=== PATIENT | female | born 1940 | race Caucasian/White ===

== ENCOUNTER → 2016-03-02 | Outpatient (CLI) | payer MEDICARE, BC ==
[~2016-03-02] MED LIST: BYSTOLIC10 MG PO; TAPAZOLE5 MG PO; VALSARTAN AND H1 TA4 PO; WARFARIN SOD5 MG PO; ZOLPIDEM10 MG PO
== END ==
LOC: LAB 11:31
DX: I49.9 Cardiac arrhythmia, unspecified (principal); G45.1 Carotid artery syndrome (hemispheric)

== ENCOUNTER → 2016-03-09 | Outpatient (CLI) | payer MEDICARE, BC | LOC: LAB 11:05 | DX: E05.00 Thyrotoxicosis with diffuse goiter without thyrotoxic crisis or storm (principal); I10 Essential (primary) hypertension; G45.1 Carotid artery syndrome (hemispheric); R53.81 Other malaise; R25.2 Cramp and spasm ==

== ENCOUNTER → 2016-03-23 | Outpatient (CLI) | payer MEDICARE, BC | LOC: LAB 10:59 | DX: Z51.81 Encounter for therapeutic drug level monitoring (principal); Z79.01 Long term (current) use of anticoagulants; G45.1 Carotid artery syndrome (hemispheric); I49.9 Cardiac arrhythmia, unspecified ==

== ENCOUNTER → 2016-03-30 | Outpatient (CLI) | payer MEDICARE, BC | LOC: LAB 11:00 | DX: I49.9 Cardiac arrhythmia, unspecified (principal); G45.1 Carotid artery syndrome (hemispheric) ==

== ENCOUNTER → 2016-04-13 | Outpatient (CLI) | payer MEDICARE, BC | LOC: LAB 10:34 | DX: I49.9 Cardiac arrhythmia, unspecified (principal) ==

== ENCOUNTER → 2016-04-27 | Outpatient (CLI) | payer MEDICARE, BC | LOC: LAB 10:36 | DX: Z51.81 Encounter for therapeutic drug level monitoring (principal); Z79.01 Long term (current) use of anticoagulants; I49.9 Cardiac arrhythmia, unspecified; G45.1 Carotid artery syndrome (hemispheric) ==

== ENCOUNTER → 2016-05-18 | Outpatient (CLI) | payer MEDICARE, BC | LOC: LAB 10:29 | DX: E04.1 Nontoxic single thyroid nodule (principal); E05.90 Thyrotoxicosis, unspecified without thyrotoxic crisis or storm ==

== ENCOUNTER → 2016-05-27 | Outpatient (CLI) | payer MEDICARE, BC | LOC: LAB 13:00 | DX: Z51.81 Encounter for therapeutic drug level monitoring (principal); Z79.01 Long term (current) use of anticoagulants; G45.1 Carotid artery syndrome (hemispheric) ==

== ENCOUNTER → 2016-06-25 | Outpatient (CLI) | payer MEDICARE, BC ==
[2013-05-20 18:36] VITALS: BP 139/82
== END ==
LOC: LAB 11:59
DX: Z51.81 Encounter for therapeutic drug level monitoring (principal); Z79.01 Long term (current) use of anticoagulants; G45.1 Carotid artery syndrome (hemispheric); I49.9 Cardiac arrhythmia, unspecified

== ENCOUNTER → 2016-07-29 | Outpatient (CLI) | payer MEDICARE, BC ==
[2013-05-20 18:36] VITALS: BP 139/82
== END ==
LOC: LAB 10:26
DX: Z51.81 Encounter for therapeutic drug level monitoring (principal); Z79.01 Long term (current) use of anticoagulants; I49.9 Cardiac arrhythmia, unspecified

== ENCOUNTER → 2016-08-03 | Outpatient (CLI) | payer MEDICARE, BC ==
[2013-05-20 18:36] VITALS: BP 139/82
== END ==
LOC: LAB 15:05
DX: Z51.81 Encounter for therapeutic drug level monitoring (principal); Z79.01 Long term (current) use of anticoagulants; I49.9 Cardiac arrhythmia, unspecified; G45.1 Carotid artery syndrome (hemispheric)

== ENCOUNTER → 2016-08-26 | Outpatient (CLI) | payer MEDICARE, BC ==
[2013-05-20 18:36] VITALS: BP 139/82
== END ==
LOC: LAB 10:36
DX: Z51.81 Encounter for therapeutic drug level monitoring (principal); Z79.01 Long term (current) use of anticoagulants; I49.9 Cardiac arrhythmia, unspecified; G45.1 Carotid artery syndrome (hemispheric)

== ENCOUNTER → 2016-09-24 | Outpatient (CLI) | payer MEDICARE, BC ==
[2013-05-20 18:36] VITALS: BP 139/82
== END ==
LOC: LAB 11:38
DX: I49.9 Cardiac arrhythmia, unspecified (principal)

== ENCOUNTER → 2016-10-08 | Outpatient (CLI) | payer MEDICARE, BC ==
[2013-05-20 18:36] VITALS: BP 139/82
== END ==
LOC: LAB 13:29
DX: I49.9 Cardiac arrhythmia, unspecified (principal)

== ENCOUNTER → 2016-11-05 | Outpatient (CLI) | payer MEDICARE, BC ==
[2013-05-20 18:36] VITALS: BP 139/82
== END ==
LOC: LAB 13:29
DX: I49.9 Cardiac arrhythmia, unspecified (principal)

== ENCOUNTER → 2016-11-19 | Outpatient (CLI) | payer MEDICARE, BC ==
[2013-05-20 18:36] VITALS: BP 139/82
== END ==
LOC: LAB 11:14
DX: E05.20 Thyrotoxicosis with toxic multinodular goiter without thyrotoxic crisis or storm (principal); I10 Essential (primary) hypertension; R13.10 Dysphagia, unspecified

== ENCOUNTER → 2016-12-02 | Outpatient (CLI) | payer MEDICARE, BC ==
[2013-05-20 18:36] VITALS: BP 139/82
== END ==
LOC: LAB 10:46
DX: I49.9 Cardiac arrhythmia, unspecified (principal); G45.1 Carotid artery syndrome (hemispheric)

== ENCOUNTER → 2016-12-09 | Outpatient (CLI) | payer MEDICARE, BC ==
[2013-05-20 18:36] VITALS: BP 139/82
[~2016-12-09] MED LIST changes: +DIOVAN HCT PO; +LASIX20 M1 PO
== END ==
LOC: MAMMO 11:11
DX: Z12.31 Encounter for screening mammogram for malignant neoplasm of breast (principal)
CPT/HCPCS: G0202

== ENCOUNTER 2016-12-10 11:05 | Emergency (ER) | payer MEDICARE, BC ==
[~2016-12-10] VITALS: Ht 165.1 cm; Wt 104.5 kg
[~2016-12-10 11:05] MED LIST changes: -DIOVAN HCT PO; -LASIX20 M1 PO
[2016-12-10] MEDS ORDERED: DIOVAN HCT PO (11:27)
[2016-12-10 14:29] VITALS: BP 163/87
[2016-12-11] MEDS ORDERED: LASIX20 M1 PO (19:03)
== END 2016-12-10 14:34 | disposition home or self-care (01) ==
LOC: ED 11:05
DX: R07.9 Chest pain, unspecified (principal); R00.1 Bradycardia, unspecified; Z79.01 Long term (current) use of anticoagulants; I10 Essential (primary) hypertension; E78.5 Hyperlipidemia, unspecified; I65.29 Occlusion and stenosis of unspecified carotid artery; E05.00 Thyrotoxicosis with diffuse goiter without thyrotoxic crisis or storm; M79.7 Fibromyalgia; G47.33 Obstructive sleep apnea (adult) (pediatric); K29.70 Gastritis, unspecified, without bleeding; G25.81 Restless legs syndrome; M81.0 Age-related osteoporosis without current pathological fracture; Z87.891 Personal history of nicotine dependence

== ENCOUNTER 2016-12-11 16:45 | Emergency (ER) | payer MEDICARE, BC ==
[~2016-12-11] VITALS: Ht 165.1 cm; Wt 104.5 kg
[~2016-12-11 16:45] MED LIST changes: +DIOVAN HCT PO
[2016-12-11] MEDS ORDERED: LASIX20 M1 PO (19:03)
[2016-12-11 19:33] VITALS: BP 157/94
== END 2016-12-11 19:33 | disposition home or self-care (01) ==
LOC: ED 16:45
DX: I11.0 Hypertensive heart disease with heart failure (principal); I50.9 Heart failure, unspecified; Z79.01 Long term (current) use of anticoagulants; E78.5 Hyperlipidemia, unspecified; E05.00 Thyrotoxicosis with diffuse goiter without thyrotoxic crisis or storm; G47.33 Obstructive sleep apnea (adult) (pediatric); M79.7 Fibromyalgia; G25.81 Restless legs syndrome; Z87.891 Personal history of nicotine dependence; I65.29 Occlusion and stenosis of unspecified carotid artery
CPT/HCPCS: J1940

== ENCOUNTER → 2016-12-14 | Outpatient (CLI) | payer MEDICARE, BC ==
[2016-12-11 19:33] VITALS: BP 157/94
[~2016-12-14] MED LIST changes: +LASIX20 M1 PO
== END ==
LOC: RAD 10:00 → VAS 18:13
DX: R06.02 Shortness of breath (principal); I50.9 Heart failure, unspecified

== ENCOUNTER → 2016-12-21 | Outpatient (CLI) | payer MEDICARE, BC ==
[2016-12-11 19:33] VITALS: BP 157/94
[2016-12-21 11:33] LABS: PROTHROMBIN TIME 22.5 SECONDS (9.0-12.0)
== END ==
LOC: LAB 10:37
PROVIDERS: Nurse Practitioner Family
DX: G45.1 Carotid artery syndrome (hemispheric) (principal); I49.9 Cardiac arrhythmia, unspecified

== ENCOUNTER → 2016-12-31 | Outpatient (CLI) | payer MEDICARE, BC ==
[2016-12-11 19:33] VITALS: BP 157/94
[2016-12-31 10:38] LABS: PROTHROMBIN TIME 25.7 SECONDS (9.0-12.0)
== END ==
LOC: RAD 09:40 → LAB 09:40 → RAD 09:45
PROVIDERS: Nurse Practitioner Family
DX: I49.9 Cardiac arrhythmia, unspecified (principal); G45.1 Carotid artery syndrome (hemispheric); R91.1 Solitary pulmonary nodule; E04.9 Nontoxic goiter, unspecified; Z95.0 Presence of cardiac pacemaker; N28.9 Disorder of kidney and ureter, unspecified

== ENCOUNTER → 2017-01-06 | Outpatient (CLI) | payer MEDICARE, BC ==
[2016-12-11 19:33] VITALS: BP 157/94
== END ==
LOC: RAD 09:47
DX: N28.9 Disorder of kidney and ureter, unspecified (principal)

== ENCOUNTER → 2017-02-03 | Outpatient (CLI) | payer MEDICARE, BC | LOC: LAB 10:54 | PROVIDERS: Nurse Practitioner Family | DX: I49.9 Cardiac arrhythmia, unspecified (principal); G45.1 Carotid artery syndrome (hemispheric) ==

== ENCOUNTER → 2017-02-17 | Outpatient (CLI) | payer MEDICARE, BC ==
[2017-02-17 13:03] LABS: PROTHROMBIN TIME 22.8 SECONDS (9.0-12.0)
== END ==
LOC: LAB 11:58
PROVIDERS: Nurse Practitioner Family
DX: I49.9 Cardiac arrhythmia, unspecified (principal); Z88.0 Allergy status to penicillin; Z88.2 Allergy status to sulfonamides; Z88.8 Allergy status to other drugs, medicaments and biological substances; Z91.041 Radiographic dye allergy status

== ENCOUNTER → 2017-03-08 | Outpatient (CLI) | payer MEDICARE, BC ==
[2017-03-08 12:18] LABS: PROTHROMBIN TIME 20.6 SECONDS (9.0-12.0)
== END ==
LOC: LAB 11:50
PROVIDERS: Nurse Practitioner Family
DX: I49.9 Cardiac arrhythmia, unspecified (principal); G45.1 Carotid artery syndrome (hemispheric)

== ENCOUNTER → 2017-04-14 | Outpatient (CLI) | payer MEDICARE, BC ==
[2017-04-14 12:45] LABS: PROTHROMBIN TIME 25.6 SECONDS (9.0-12.0)
[2017-04-14 13:09] LABS: BUN/CREATININE RATIO 12.8 (6.0-26.0); CALCIUM 9.2 mg/dL (8.4-10.2); POTASSIUM 4.5 mmol/L (3.6-5.0)
== END ==
LOC: LAB 12:10
PROVIDERS: Internal Medicine Clinical Cardiac Electrophysiology
DX: I44.1 Atrioventricular block, second degree (principal); I48.0 Paroxysmal atrial fibrillation; Z95.0 Presence of cardiac pacemaker; I10 Essential (primary) hypertension; I82.409 Acute embolism and thrombosis of unspecified deep veins of unspecified lower extremity

== ENCOUNTER → 2017-05-13 | Outpatient (CLI) | payer MEDICARE, BC ==
[2017-05-13 11:44] LABS: PROTHROMBIN TIME 24.9 SECONDS (9.0-12.0)
== END ==
LOC: LAB 10:49
PROVIDERS: Nurse Practitioner Family
DX: I82.409 Acute embolism and thrombosis of unspecified deep veins of unspecified lower extremity (principal); Z88.0 Allergy status to penicillin; Z88.2 Allergy status to sulfonamides; Z88.1 Allergy status to other antibiotic agents; Z91.041 Radiographic dye allergy status

== ENCOUNTER → 2017-05-26 | Outpatient (CLI) | payer MEDICARE, BC ==
[2017-05-26 14:49] LABS: EOS # 0.3 (0.04-0.40); EOS % 2.8 % (1.0-5.0); HEMATOCRIT 45.7 % (37.0-47.0); HEMOGLOBIN 14.9 g/dL (12.5-16.0); LYMPH# 2.9 (1.50-4.00); MEAN CELL VOLUME 91 fl (78-100); MEAN CORPUSCULAR HEMOGLOBIN 30 pg (27-31); MEAN CORPUSCULAR HGB CONC 33 g/dL (33-37); MEAN PLATELET VOLUME 9.6 fl (7.4-10.4); MONO # 0.8 (0.20-0.80); NEU # 5.2 (1.40-6.50); PLATELET COUNT 180 K/mm3 (130-400); RED BLOOD COUNT 5.05 M/mm3 (4.10-5.30); RED CELL DISTRIBUTION WIDTH 13.2 % (11.5-14.5); WHITE BLOOD COUNT 9.2 K/mm3 (4.8-10.8)
[2017-05-26 15:08] LABS: DIRECT BILIRUBIN 0.2 mg/dL (0.0-0.4); TOTAL BILIRUBIN 0.4 mg/dL (0.2-1.3); TOTAL PROTEIN 7.7 g/dL (6.3-8.2)
== END ==
LOC: LAB 14:16
DX: E05.00 Thyrotoxicosis with diffuse goiter without thyrotoxic crisis or storm (principal); I10 Essential (primary) hypertension; R13.10 Dysphagia, unspecified; E04.1 Nontoxic single thyroid nodule

== ENCOUNTER → 2017-06-09 | Outpatient (CLI) | payer MEDICARE, BC ==
[2017-06-09 14:08] LABS: PROTHROMBIN TIME 18.7 SECONDS (9.0-12.0)
== END ==
LOC: LAB 13:24
PROVIDERS: Nurse Practitioner Family
DX: I82.409 Acute embolism and thrombosis of unspecified deep veins of unspecified lower extremity (principal)

== ENCOUNTER → 2017-06-21 | Outpatient (CLI) | payer MEDICARE, BC ==
[2017-06-21 12:03] LABS: PROTHROMBIN TIME 24.3 SECONDS (9.0-12.0)
== END ==
LOC: LAB 11:24
PROVIDERS: Nurse Practitioner Family
DX: I82.409 Acute embolism and thrombosis of unspecified deep veins of unspecified lower extremity (principal); Z88.2 Allergy status to sulfonamides; Z88.1 Allergy status to other antibiotic agents; Z91.041 Radiographic dye allergy status

== ENCOUNTER → 2017-07-15 | Outpatient (CLI) | payer MEDICARE, BC ==
[2017-07-15 14:12] LABS: PROTHROMBIN TIME 25.9 SECONDS (9.0-12.0)
== END ==
LOC: LAB 13:32
PROVIDERS: Nurse Practitioner Family
DX: I82.409 Acute embolism and thrombosis of unspecified deep veins of unspecified lower extremity (principal)

== ENCOUNTER → 2017-07-29 | Outpatient (CLI) | payer MEDICARE, BC ==
[2017-07-29 11:48] LABS: PROTHROMBIN TIME 21.7 SECONDS (9.0-12.0)
== END ==
LOC: LAB 11:15
PROVIDERS: Nurse Practitioner Family
DX: I82.409 Acute embolism and thrombosis of unspecified deep veins of unspecified lower extremity (principal)

== ENCOUNTER → 2017-08-19 | Outpatient (CLI) | payer MEDICARE, BC ==
[2017-08-19 11:59] LABS: PROTHROMBIN TIME 28.1 SECONDS (9.0-12.0)
== END ==
LOC: LAB 10:58
PROVIDERS: Nurse Practitioner Family
DX: I82.409 Acute embolism and thrombosis of unspecified deep veins of unspecified lower extremity (principal)

== ENCOUNTER → 2017-09-15 | Outpatient (CLI) | payer MEDICARE, BC ==
[2017-09-15 12:00] LABS: PROTHROMBIN TIME 29.1 SECONDS (9.0-12.0)
== END ==
LOC: LAB 10:51
PROVIDERS: Nurse Practitioner Family
DX: I82.409 Acute embolism and thrombosis of unspecified deep veins of unspecified lower extremity (principal)

== ENCOUNTER 2017-09-29 12:11 | Emergency (ER) | payer MEDICARE, BC ==
[~2017-09-29] VITALS: Ht 165.1 cm; Wt 104.5 kg
[~2017-09-29 12:11] MED LIST changes: -COZAAR25 M1 PO; -MACROBID 100 M100 MG PO
[2017-09-29] MEDS ORDERED: COZAAR25 M1 PO (12:27)
[2017-09-29 12:40] LABS: PARTIAL THROMBOPLASTIN TIME 33.4 SECONDS (21.0-32.0); PROTHROMBIN TIME 22.7 SECONDS (9.0-12.0)
[2017-09-29 12:50] LABS: TROPONIN-I < 0.03 ng/mL (0.00-0.06)
[2017-09-29] MEDS ORDERED: MACROBID 100 M100 MG PO (16:14)
[2017-09-29 16:29] VITALS: BP 156/81
== END 2017-09-29 17:07 | disposition home or self-care (01) ==
LOC: ED 12:11
PROVIDERS: Nurse Practitioner
DX: N39.0 Urinary tract infection, site not specified (principal); R07.89 Other chest pain; I10 Essential (primary) hypertension; K59.00 Constipation, unspecified; R60.0 Localized edema; E78.5 Hyperlipidemia, unspecified; Z86.718 Personal history of other venous thrombosis and embolism; Z85.41 Personal history of malignant neoplasm of cervix uteri; Z95.0 Presence of cardiac pacemaker; Z79.01 Long term (current) use of anticoagulants; Z79.899 Other long term (current) drug therapy; Z88.0 Allergy status to penicillin; Z88.2 Allergy status to sulfonamides; Z87.891 Personal history of nicotine dependence
CPT/HCPCS: J1940

== ENCOUNTER → 2017-09-29 | Outpatient (CLI) | payer MEDICARE, BC ==
[~2017-09-29] MED LIST changes: +COZAAR25 M1 PO; +MACROBID 100 M100 MG PO
[2017-09-29 11:39] LABS: EOS # 0.1 (0.04-0.40); EOS % 1.7 % (1.0-5.0); HEMATOCRIT 44.9 % (37.0-47.0); HEMOGLOBIN 14.6 g/dL (12.5-16.0); LYMPH# 1.9 (1.50-4.00); MEAN CELL VOLUME 91 fl (78-100); MEAN CORPUSCULAR HEMOGLOBIN 30 pg (27-31); MEAN CORPUSCULAR HGB CONC 33 g/dL (33-37); MEAN PLATELET VOLUME 9.8 fl (7.4-10.4); MONO # 0.6 (0.20-0.80); NEU # 5.5 (1.40-6.50); PLATELET COUNT 183 K/mm3 (130-400); RED BLOOD COUNT 4.92 M/mm3 (4.10-5.30); RED CELL DISTRIBUTION WIDTH 13.2 % (11.5-14.5); WHITE BLOOD COUNT 8.2 K/mm3 (4.8-10.8)
[2017-09-29 11:46] LABS: ALBUMIN 4.2 g/dL (3.5-5.0); BUN/CREATININE RATIO 14.5 (6.0-26.0); CALCIUM 9.4 mg/dL (8.4-10.2); POTASSIUM 4.2 mmol/L (3.6-5.0); TOTAL BILIRUBIN 0.4 mg/dL (0.2-1.3); TOTAL PROTEIN 8.1 g/dL (6.3-8.2)
[2017-09-29 11:50] LABS: URINE APPEARANCE HAZY; URINE BILIRUBIN NEGATIVE (NEGATIVE); URINE BLOOD 50 ery/uL (NEGATIVE); URINE COLOR YELLOW; URINE GLUCOSE NEGATIVE (NEGATIVE); URINE KETONE NEGATIVE (NEGATIVE); URINE LEUKOCYTE ESTERASE 1+ (NEGATIVE); URINE MUCUS PRESENT (NOT PRESENT); URINE NITRATE NEGATIVE (NEGATIVE); URINE PROTEIN(semi-quant) TRACE mg/dL (NEGATIVE); URINE UROBILINOGEN NORMAL (NORMAL)
== END ==
LOC: RAD 11:14
PROVIDERS: Nurse Practitioner Family
DX: R10.84 Generalized abdominal pain (principal); F45.8 Other somatoform disorders; R07.89 Other chest pain; R60.9 Edema, unspecified; R39.15 Urgency of urination

== ENCOUNTER → 2017-10-12 | Outpatient (CLI) | payer MEDICARE, BC ==
[2017-09-29 16:29] VITALS: BP 156/81
[~2017-10-12] MED LIST changes: +COZAAR25 M1 PO; +MACROBID 100 M100 MG PO
[2017-10-12 14:36] LABS: PROTHROMBIN TIME 31.1 SECONDS (9.0-12.0)
== END ==
LOC: LAB 13:52
PROVIDERS: Nurse Practitioner Family
DX: I82.409 Acute embolism and thrombosis of unspecified deep veins of unspecified lower extremity (principal)

== ENCOUNTER 2017-10-15 10:49 | Emergency (ER) | payer MEDICARE, BC ==
[~2017-10-15] VITALS: Wt 103.5 kg
[2017-10-15] MEDS ORDERED: LOSARTAN POTASS1 TA1 PO (11:04)
[2017-10-15] MEDS ORDERED: COUMADIN 22.5 MG/TAB PO (11:05)
[2017-10-15 11:47] LABS: EOS # 0.3 (0.04-0.40); EOS % 2.6 % (1.0-5.0); HEMATOCRIT 41.6 % (37.0-47.0); HEMOGLOBIN 13.8 g/dL (12.5-16.0); LYMPH# 1.5 (1.50-4.00); MEAN CELL VOLUME 91 fl (78-100); MEAN CORPUSCULAR HEMOGLOBIN 30 pg (27-31); MEAN CORPUSCULAR HGB CONC 33 g/dL (33-37); MEAN PLATELET VOLUME 9.4 fl (7.4-10.4); NEU # 7.5 (1.40-6.50); PLATELET COUNT 163 K/mm3 (130-400); RED BLOOD COUNT 4.58 M/mm3 (4.10-5.30); RED CELL DISTRIBUTION WIDTH 12.9 % (11.5-14.5); WHITE BLOOD COUNT 10.3 K/mm3 (4.8-10.8)
[2017-10-15 12:05] LABS: ALBUMIN 3.8 g/dL (3.5-5.0); BUN/CREATININE RATIO 16.5 (6.0-26.0); POTASSIUM 3.5 mmol/L (3.6-5.0); TOTAL BILIRUBIN 0.8 mg/dL (0.2-1.3); TOTAL PROTEIN 7.4 g/dL (6.3-8.2)
[2017-10-15 12:13] LABS: TROPONIN-I < 0.03 ng/mL (0.00-0.06)
[2017-10-15 12:28] LABS: PROTHROMBIN TIME 32.1 SECONDS (9.0-12.0)
[2017-10-15] MEDS ORDERED: RT ALBUTEROL CC18 GM IH (13:09)
[2017-10-15] MEDS ORDERED: VIBRAMYCIN HYC100 MG PO (13:09)
[2017-10-15] MEDS ORDERED: PREDNISONE20 MG PO (13:09)
[2017-10-15 13:19] VITALS: BP 102/63
== END 2017-10-15 13:25 | disposition home or self-care (01) ==
LOC: ED 10:49
PROVIDERS: Physician Assistant
DX: J44.0 Chronic obstructive pulmonary disease with (acute) lower respiratory infection (principal); J20.9 Acute bronchitis, unspecified; Z87.891 Personal history of nicotine dependence; I50.9 Heart failure, unspecified; I25.10 Atherosclerotic heart disease of native coronary artery without angina pectoris; Z86.73 Personal history of transient ischemic attack (TIA), and cerebral infarction without residual deficits; Z86.718 Personal history of other venous thrombosis and embolism; Z79.899 Other long term (current) drug therapy; Z79.01 Long term (current) use of anticoagulants
CPT/HCPCS: J7512

== ENCOUNTER → 2017-10-20 | Outpatient (CLI) | payer MEDICARE, BC ==
[2017-10-15 13:19] VITALS: BP 102/63
[~2017-10-20] MED LIST changes: +COUMADIN 22.5 MG/TAB PO; +LOSARTAN POTASS1 TA1 PO; +PREDNISONE20 MG PO; +RT ALBUTEROL CC18 GM IH; +VIBRAMYCIN HYC100 MG PO
[2017-10-20 16:19] LABS: POTASSIUM 3.4 mmol/L (3.6-5.0); TOTAL BILIRUBIN 0.5 mg/dL (0.2-1.3); TOTAL PROTEIN 7.5 g/dL (6.3-8.2)
[2017-10-20 16:22] LABS: EOS # 0.3 (0.04-0.40); EOS % 2.3 % (1.0-5.0); HEMATOCRIT 43.3 % (37.0-47.0); HEMOGLOBIN 14.7 g/dL (12.5-16.0); MEAN CELL VOLUME 88 fl (78-100); MEAN CORPUSCULAR HEMOGLOBIN 30 pg (27-31); MEAN CORPUSCULAR HGB CONC 34 g/dL (33-37); MEAN PLATELET VOLUME 9.6 fl (7.4-10.4); MONO # 1.4 (0.20-0.80); NEU # 7.8 (1.40-6.50); PLATELET COUNT 232 K/mm3 (130-400); RED CELL DISTRIBUTION WIDTH 12.7 % (11.5-14.5); WHITE BLOOD COUNT 14.3 K/mm3 (4.8-10.8)
[2017-10-20 16:24] LABS: LYMPH# 4.7 (1.50-4.00)
[2017-10-20 17:18] LABS: PROTHROMBIN TIME 47.8 SECONDS (9.0-12.0)
== END ==
LOC: LAB 15:28
PROVIDERS: Family Medicine
DX: D68.61 Antiphospholipid syndrome (principal); J40 Bronchitis, not specified as acute or chronic; I10 Essential (primary) hypertension; Z79.01 Long term (current) use of anticoagulants

== ENCOUNTER → 2017-10-22 | Outpatient (CLI) | payer MEDICARE, BC ==
[2017-10-15 13:19] VITALS: BP 102/63
[2017-10-22 10:47] LABS: PROTHROMBIN TIME 23.1 SECONDS (9.0-12.0)
== END ==
LOC: LAB 10:01
PROVIDERS: Family Medicine
DX: I82.409 Acute embolism and thrombosis of unspecified deep veins of unspecified lower extremity (principal)

== ENCOUNTER → 2017-10-29 | Outpatient (CLI) | payer MEDICARE, BC ==
[2017-10-15 13:19] VITALS: BP 102/63
[2017-10-29 10:29] LABS: PROTHROMBIN TIME 34.7 SECONDS (9.0-12.0)
== END ==
LOC: LAB 09:53
PROVIDERS: Family Medicine
DX: I82.409 Acute embolism and thrombosis of unspecified deep veins of unspecified lower extremity (principal)

== ENCOUNTER → 2017-11-12 | Outpatient (CLI) | payer MEDICARE, BC ==
[2017-10-15 13:19] VITALS: BP 102/63
[2017-11-12 14:22] LABS: PROTHROMBIN TIME 44.4 SECONDS (9.0-12.0)
== END ==
LOC: LAB 10:42
PROVIDERS: Family Medicine
DX: I82.409 Acute embolism and thrombosis of unspecified deep veins of unspecified lower extremity (principal)

== ENCOUNTER → 2017-11-23 | Outpatient (CLI) | payer MEDICARE, BC ==
[2017-11-23 11:06] LABS: PROTHROMBIN TIME 19.2 SECONDS (9.0-12.0)
== END ==
LOC: LAB 10:06
PROVIDERS: Family Medicine
DX: I82.409 Acute embolism and thrombosis of unspecified deep veins of unspecified lower extremity (principal)

== ENCOUNTER → 2017-11-25 | Outpatient (CLI) | payer MEDICARE, BC ==
[2017-11-25 12:51] LABS: DIRECT BILIRUBIN 0.4 mg/dL (0.0-0.4); TOTAL BILIRUBIN 0.7 mg/dL (0.2-1.3); TOTAL PROTEIN 7.4 g/dL (6.3-8.2)
[2017-11-25 13:23] LABS: EOS # 0.2 (0.04-0.40); HEMATOCRIT 42.2 % (37.0-47.0); HEMOGLOBIN 13.9 g/dL (12.5-16.0); LYMPH# 2.3 (1.50-4.00); MEAN CELL VOLUME 91 fl (78-100); MEAN CORPUSCULAR HEMOGLOBIN 30 pg (27-31); MEAN CORPUSCULAR HGB CONC 33 g/dL (33-37); MEAN PLATELET VOLUME 9.7 fl (7.4-10.4); MONO # 0.9 (0.20-0.80); NEU # 6.1 (1.40-6.50); PLATELET COUNT 213 K/mm3 (130-400); RED BLOOD COUNT 4.64 M/mm3 (4.10-5.30); WHITE BLOOD COUNT 9.5 K/mm3 (4.8-10.8)
== END ==
LOC: LAB 12:09
PROVIDERS: Internal Medicine Endocrinology, Diabetes & Metabolism
DX: E05.00 Thyrotoxicosis with diffuse goiter without thyrotoxic crisis or storm (principal); I10 Essential (primary) hypertension; R13.10 Dysphagia, unspecified; E04.1 Nontoxic single thyroid nodule

== ENCOUNTER → 2017-11-30 | Outpatient (CLI) | payer MEDICARE, BC ==
[2017-11-30 13:41] LABS: PROTHROMBIN TIME 30.2 SECONDS (9.0-12.0)
== END ==
LOC: LAB 13:18
PROVIDERS: Family Medicine
DX: I82.409 Acute embolism and thrombosis of unspecified deep veins of unspecified lower extremity (principal)

== ENCOUNTER → 2017-12-14 | Outpatient (CLI) | payer MEDICARE, BC ==
[2017-12-14 11:22] LABS: PROTHROMBIN TIME 26.5 SECONDS (9.0-12.0)
== END ==
LOC: LAB 10:51
PROVIDERS: Family Medicine
DX: I82.409 Acute embolism and thrombosis of unspecified deep veins of unspecified lower extremity (principal)

== ENCOUNTER → 2017-12-28 | Outpatient (CLI) | payer MEDICARE, BC | LOC: MAMMO 13:36 | DX: Z12.31 Encounter for screening mammogram for malignant neoplasm of breast (principal); Z98.890 Other specified postprocedural states; Z95.0 Presence of cardiac pacemaker ==

== ENCOUNTER → 2018-01-12 | Outpatient (CLI) | payer MEDICARE, BC ==
[2018-01-12 11:53] LABS: PROTHROMBIN TIME 35.1 SECONDS (9.0-12.0)
== END ==
LOC: LAB 10:47
PROVIDERS: Family Medicine
DX: I82.409 Acute embolism and thrombosis of unspecified deep veins of unspecified lower extremity (principal)

== ENCOUNTER → 2018-01-26 | Outpatient (CLI) | payer MEDICARE, BC ==
[2018-01-26 11:00] LABS: PROTHROMBIN TIME 24.5 SECONDS (9.0-12.0)
== END ==
LOC: LAB 10:21
PROVIDERS: Family Medicine
DX: I82.409 Acute embolism and thrombosis of unspecified deep veins of unspecified lower extremity (principal)

== ENCOUNTER → 2018-02-08 | Outpatient (CLI) | payer MEDICARE, BC ==
[2018-02-08 14:57] LABS: PROTHROMBIN TIME 22.1 SECONDS (9.0-12.0)
== END ==
LOC: LAB 13:54
PROVIDERS: Family Medicine
DX: I82.409 Acute embolism and thrombosis of unspecified deep veins of unspecified lower extremity (principal)

== ENCOUNTER → 2018-02-16 | Outpatient (CLI) | payer MEDICARE, BC ==
[2018-02-16 14:27] LABS: PROTHROMBIN TIME 16.9 SECONDS (9.0-12.0)
== END ==
LOC: LAB 13:54
PROVIDERS: Family Medicine
DX: I82.409 Acute embolism and thrombosis of unspecified deep veins of unspecified lower extremity (principal)

== ENCOUNTER → 2018-03-02 | Outpatient (CLI) | payer MEDICARE, BC ==
[2018-03-02 11:50] LABS: PROTHROMBIN TIME 24.1 SECONDS (9.0-12.0)
== END ==
LOC: LAB 10:59
PROVIDERS: Family Medicine
DX: I82.409 Acute embolism and thrombosis of unspecified deep veins of unspecified lower extremity (principal)

== ENCOUNTER → 2018-03-16 | Outpatient (CLI) | payer MEDICARE, BC ==
[2018-03-16 13:06] LABS: PROTHROMBIN TIME 30.3 SECONDS (9.0-12.0)
== END ==
LOC: LAB 11:10
PROVIDERS: Family Medicine
DX: I82.409 Acute embolism and thrombosis of unspecified deep veins of unspecified lower extremity (principal)

== ENCOUNTER → 2018-04-06 | Outpatient (CLI) | payer MEDICARE, BC | LOC: LAB 14:01 | PROVIDERS: Family Medicine | DX: I82.409 Acute embolism and thrombosis of unspecified deep veins of unspecified lower extremity (principal) ==

== ENCOUNTER → 2018-05-09 | Outpatient (CLI) | payer MEDICARE, BC ==
[2018-05-09 14:24] LABS: PROTHROMBIN TIME 26.1 SECONDS (9.0-12.0)
== END ==
LOC: LAB 13:39
PROVIDERS: Family Medicine
DX: I82.409 Acute embolism and thrombosis of unspecified deep veins of unspecified lower extremity (principal)

== ENCOUNTER → 2018-06-06 | Outpatient (CLI) | payer MEDICARE, BC ==
[2018-06-06 15:17] LABS: EOS # 0.2 (0.04-0.40); EOS % 2.6 % (1.0-5.0); HEMATOCRIT 41.9 % (37.0-47.0); HEMOGLOBIN 13.8 g/dL (12.5-16.0); LYMPH# 2.4 (1.50-4.00); MEAN CELL VOLUME 90 fl (78-100); MEAN CORPUSCULAR HEMOGLOBIN 30 pg (27-31); MEAN CORPUSCULAR HGB CONC 33 g/dL (33-37); MEAN PLATELET VOLUME 9.2 fl (7.4-10.4); MONO # 0.8 (0.20-0.80); NEU # 5.6 (1.40-6.50); PLATELET COUNT 189 K/mm3 (130-400); RED BLOOD COUNT 4.68 M/mm3 (4.10-5.30); RED CELL DISTRIBUTION WIDTH 12.9 % (11.5-14.5); WHITE BLOOD COUNT 9.1 K/mm3 (4.8-10.8)
[2018-06-06 16:40] LABS: ALBUMIN 3.9 g/dL (3.5-5.0); DIRECT BILIRUBIN 0.2 mg/dL (0.0-0.4); TOTAL BILIRUBIN 0.5 mg/dL (0.2-1.3); TOTAL PROTEIN 7.2 g/dL (6.3-8.2)
== END ==
LOC: LAB 14:54
PROVIDERS: Internal Medicine Endocrinology, Diabetes & Metabolism
DX: E03.9 Hypothyroidism, unspecified (principal); E04.1 Nontoxic single thyroid nodule; E05.00 Thyrotoxicosis with diffuse goiter without thyrotoxic crisis or storm

== ENCOUNTER → 2018-06-08 | Outpatient (CLI) | payer MEDICARE, BC ==
[2018-06-08 13:27] LABS: PROTHROMBIN TIME 23.9 SECONDS (9.0-12.0)
== END ==
LOC: LAB 12:18
PROVIDERS: Family Medicine
DX: I82.409 Acute embolism and thrombosis of unspecified deep veins of unspecified lower extremity (principal)

== ENCOUNTER → 2018-07-04 | Outpatient (CLI) | payer MEDICARE, BC ==
[2018-07-04 16:18] LABS: EOS # 0.3 (0.04-0.40); EOS % 3.1 % (1.0-5.0); HEMATOCRIT 43.1 % (37.0-47.0); LYMPH# 2.4 (1.50-4.00); MEAN CELL VOLUME 91 fl (78-100); MEAN CORPUSCULAR HEMOGLOBIN 29 pg (27-31); MEAN CORPUSCULAR HGB CONC 33 g/dL (33-37); MEAN PLATELET VOLUME 9.3 fl (7.4-10.4); MONO # 0.6 (0.20-0.80); NEU # 5.1 (1.40-6.50); PLATELET COUNT 202 K/mm3 (130-400); RED BLOOD COUNT 4.76 M/mm3 (4.10-5.30); WHITE BLOOD COUNT 8.4 K/mm3 (4.8-10.8)
[2018-07-04 16:23] LABS: ALBUMIN 4.3 g/dL (3.5-5.0); CALCIUM 9.4 mg/dL (8.4-10.2); POTASSIUM 4.2 mmol/L (3.6-5.0); TOTAL BILIRUBIN 0.4 mg/dL (0.2-1.3); TOTAL PROTEIN 7.8 g/dL (6.3-8.2)
[2018-07-04 16:56] LABS: PROTHROMBIN TIME 25.5 SECONDS (9.0-12.0)
== END ==
LOC: LAB 15:35
PROVIDERS: Family Medicine
DX: I82.409 Acute embolism and thrombosis of unspecified deep veins of unspecified lower extremity (principal); I10 Essential (primary) hypertension; E05.00 Thyrotoxicosis with diffuse goiter without thyrotoxic crisis or storm; E55.9 Vitamin D deficiency, unspecified; E53.9 Vitamin B deficiency, unspecified

== ENCOUNTER → 2018-07-27 | Outpatient (CLI) | payer MEDICARE, BC ==
[2018-07-27 13:57] LABS: PROTHROMBIN TIME 32.5 SECONDS (9.0-12.0)
== END ==
LOC: LAB 13:15
PROVIDERS: Family Medicine
DX: I82.409 Acute embolism and thrombosis of unspecified deep veins of unspecified lower extremity (principal); I10 Essential (primary) hypertension; Z95.0 Presence of cardiac pacemaker

== ENCOUNTER → 2018-08-10 | Outpatient (CLI) | payer MEDICARE, BC ==
[2018-08-10 14:05] LABS: PROTHROMBIN TIME 26.4 SECONDS (9.0-12.0)
== END ==
LOC: LAB 13:35
PROVIDERS: Family Medicine
DX: I10 Essential (primary) hypertension (principal); I82.409 Acute embolism and thrombosis of unspecified deep veins of unspecified lower extremity; Z95.0 Presence of cardiac pacemaker

== ENCOUNTER → 2018-09-21 | Outpatient (CLI) | payer MEDICARE, BC ==
[2018-09-21 14:21] LABS: PROTHROMBIN TIME 26.1 SECONDS (9.0-12.0)
== END ==
LOC: LAB 13:52
PROVIDERS: Family Medicine
DX: I82.409 Acute embolism and thrombosis of unspecified deep veins of unspecified lower extremity (principal)

== ENCOUNTER → 2018-10-19 | Outpatient (CLI) | payer MEDICARE, BC ==
[2018-10-19 11:08] LABS: PROTHROMBIN TIME 26.1 SECONDS (9.0-12.0)
== END ==
LOC: LAB 10:04
PROVIDERS: Family Medicine
DX: I82.409 Acute embolism and thrombosis of unspecified deep veins of unspecified lower extremity (principal)

== ENCOUNTER → 2018-11-16 | Outpatient (CLI) | payer MEDICARE, BC ==
[2018-11-16 10:48] LABS: PROTHROMBIN TIME 26.6 SECONDS (9.0-12.0)
== END ==
LOC: LAB 10:08
PROVIDERS: Family Medicine
DX: I82.409 Acute embolism and thrombosis of unspecified deep veins of unspecified lower extremity (principal)

== ENCOUNTER → 2018-12-15 | Outpatient (CLI) | payer MEDICARE, BC ==
[2018-12-15 10:41] LABS: PROTHROMBIN TIME 33.4 SECONDS (9.0-12.0)
== END ==
LOC: LAB 10:09
PROVIDERS: Family Medicine
DX: I82.409 Acute embolism and thrombosis of unspecified deep veins of unspecified lower extremity (principal)

== ENCOUNTER → 2018-12-28 | Outpatient (CLI) | payer MEDICARE, BC ==
[2018-12-28 15:03] LABS: PROTHROMBIN TIME 22.6 SECONDS (9.0-12.0)
== END ==
LOC: LAB 14:30
PROVIDERS: Family Medicine
DX: I82.409 Acute embolism and thrombosis of unspecified deep veins of unspecified lower extremity (principal)

== ENCOUNTER → 2019-01-18 | Outpatient (CLI) | payer MEDICARE, BC ==
[2019-01-18 11:35] LABS: PROTHROMBIN TIME 44.6 SECONDS (9.0-12.0)
== END ==
LOC: LAB 10:47
PROVIDERS: Family Medicine
DX: I82.409 Acute embolism and thrombosis of unspecified deep veins of unspecified lower extremity (principal)

== ENCOUNTER → 2019-01-25 | Outpatient (CLI) | payer MEDICARE, BC ==
[2019-01-25 12:55] LABS: PROTHROMBIN TIME 23.7 SECONDS (9.0-12.0)
== END ==
LOC: LAB 12:23
PROVIDERS: Family Medicine
DX: I82.409 Acute embolism and thrombosis of unspecified deep veins of unspecified lower extremity (principal)

== ENCOUNTER → 2019-02-01 | Outpatient (CLI) | payer MEDICARE, BC | LOC: LAB 10:19 | PROVIDERS: Family Medicine | DX: I82.409 Acute embolism and thrombosis of unspecified deep veins of unspecified lower extremity (principal) ==

== ENCOUNTER → 2019-02-15 | Outpatient (CLI) | payer MEDICARE, BC ==
[2019-02-15 11:51] LABS: PROTHROMBIN TIME 29.1 SECONDS (9.0-12.0)
== END ==
LOC: LAB 11:02
PROVIDERS: Family Medicine
DX: I82.409 Acute embolism and thrombosis of unspecified deep veins of unspecified lower extremity (principal)

== ENCOUNTER → 2019-03-08 | Outpatient (CLI) | payer MEDICARE, BC ==
[2019-03-08 11:19] LABS: PROTHROMBIN TIME 34.1 SECONDS (9.0-12.0)
== END ==
LOC: LAB 10:48
PROVIDERS: Family Medicine
DX: I82.409 Acute embolism and thrombosis of unspecified deep veins of unspecified lower extremity (principal)

== ENCOUNTER → 2019-03-15 | Outpatient (CLI) | payer MEDICARE, BC ==
[2019-03-15 14:52] LABS: PROTHROMBIN TIME 37.4 SECONDS (9.0-12.0)
== END ==
LOC: LAB 13:59
PROVIDERS: Family Medicine
DX: I82.409 Acute embolism and thrombosis of unspecified deep veins of unspecified lower extremity (principal)

== ENCOUNTER → 2019-03-21 | Outpatient (CLI) | payer MEDICARE, BC ==
[2019-03-21 11:36] LABS: PROTHROMBIN TIME 31.9 SECONDS (9.0-12.0)
== END ==
LOC: LAB 10:48
PROVIDERS: Family Medicine
DX: I82.409 Acute embolism and thrombosis of unspecified deep veins of unspecified lower extremity (principal)

== ENCOUNTER → 2019-03-28 | Outpatient (CLI) | payer MEDICARE, BC ==
[2019-03-28 11:21] LABS: PROTHROMBIN TIME 30.1 SECONDS (9.0-12.0)
== END ==
LOC: LAB 10:48
PROVIDERS: Family Medicine
DX: I82.409 Acute embolism and thrombosis of unspecified deep veins of unspecified lower extremity (principal)

== ENCOUNTER → 2019-04-05 | Outpatient (CLI) | payer MEDICARE, BC ==
[2019-04-05 11:02] LABS: PROTHROMBIN TIME 33.5 SECONDS (9.0-12.0)
== END ==
LOC: LAB 10:32
PROVIDERS: Family Medicine
DX: I82.409 Acute embolism and thrombosis of unspecified deep veins of unspecified lower extremity (principal)

== ENCOUNTER → 2019-04-11 | Outpatient (CLI) | payer MEDICARE, BC ==
[2019-04-11 11:04] LABS: PROTHROMBIN TIME 27.2 SECONDS (9.0-12.0)
== END ==
LOC: LAB 10:36
PROVIDERS: Family Medicine
DX: I82.409 Acute embolism and thrombosis of unspecified deep veins of unspecified lower extremity (principal)

== ENCOUNTER → 2019-04-26 | Outpatient (CLI) | payer MEDICARE, BC ==
[2019-04-26 12:29] LABS: PROTHROMBIN TIME 27.9 SECONDS (9.0-12.0)
== END ==
LOC: LAB 10:43
PROVIDERS: Family Medicine
DX: I82.409 Acute embolism and thrombosis of unspecified deep veins of unspecified lower extremity (principal)

== ENCOUNTER → 2019-05-12 | Outpatient (CLI) | payer MEDICARE, BC | LOC: LAB 09:41 | PROVIDERS: Family Medicine | DX: I82.409 Acute embolism and thrombosis of unspecified deep veins of unspecified lower extremity (principal) ==

== ENCOUNTER → 2019-06-06 | Outpatient (CLI) | payer MEDICARE, BC | LOC: LAB 10:12 | PROVIDERS: Internal Medicine | DX: I82.409 Acute embolism and thrombosis of unspecified deep veins of unspecified lower extremity (principal) ==

== ENCOUNTER → 2019-07-18 | Outpatient (CLI) | payer MEDICARE, BC ==
[2019-07-18 10:55] LABS: PROTHROMBIN TIME 27.1 SECONDS (9.0-12.0)
== END ==
LOC: LAB 09:26
PROVIDERS: Family Medicine
DX: I82.409 Acute embolism and thrombosis of unspecified deep veins of unspecified lower extremity (principal)

== ENCOUNTER → 2019-08-16 | Outpatient (CLI) | payer MEDICARE, BC ==
[2019-08-16 11:42] LABS: PROTHROMBIN TIME 35.8 SECONDS (9.0-12.0)
== END ==
LOC: LAB 11:07
PROVIDERS: Family Medicine
DX: I82.409 Acute embolism and thrombosis of unspecified deep veins of unspecified lower extremity (principal)

== ENCOUNTER → 2019-08-22 | Outpatient (CLI) | payer MEDICARE, BC ==
[2019-08-22 11:03] LABS: PROTHROMBIN TIME 31.3 SECONDS (9.0-12.0)
== END ==
LOC: LAB 10:21
PROVIDERS: Family Medicine
DX: I82.409 Acute embolism and thrombosis of unspecified deep veins of unspecified lower extremity (principal)

== ENCOUNTER → 2019-08-29 | Outpatient (CLI) | payer MEDICARE, BC ==
[2019-08-29 11:30] LABS: PROTHROMBIN TIME 23.5 SECONDS (9.0-12.0)
== END ==
LOC: LAB 10:25
PROVIDERS: Family Medicine
DX: I82.409 Acute embolism and thrombosis of unspecified deep veins of unspecified lower extremity (principal)

== ENCOUNTER → 2019-09-05 | Outpatient (CLI) | payer MEDICARE, BC ==
[2019-09-05 11:35] LABS: EOS # 0.2 (0.04-0.40); EOS % 1.9 % (1.0-5.0); HEMATOCRIT 45.1 % (37.0-47.0); HEMOGLOBIN 14.6 g/dL (12.5-16.0); MEAN CELL VOLUME 90 fl (78-100); MEAN CORPUSCULAR HEMOGLOBIN 29 pg (27-31); MEAN CORPUSCULAR HGB CONC 32 g/dL (33-37); MEAN PLATELET VOLUME 9.5 fl (7.4-10.4); MONO # 0.6 (0.20-0.80); NEU # 5.2 (1.40-6.50); PLATELET COUNT 205 K/mm3 (130-400); RED CELL DISTRIBUTION WIDTH 12.9 % (11.5-14.5)
[2019-09-05 11:47] LABS: ALBUMIN 3.8 g/dL (3.4-4.8)
[2019-09-05 11:50] LABS: TOTAL PROTEIN 8.1 g/dL (6.2-8.1)
[2019-09-05 11:51] LABS: TOTAL BILIRUBIN 0.6 mg/dL (0.2-1.2)
[2019-09-05 11:55] LABS: DIRECT BILIRUBIN 0.3 mg/dL (0.0-0.5)
== END ==
LOC: LAB 10:43
PROVIDERS: Internal Medicine Endocrinology, Diabetes & Metabolism
DX: E05.00 Thyrotoxicosis with diffuse goiter without thyrotoxic crisis or storm (principal); E04.2 Nontoxic multinodular goiter; I10 Essential (primary) hypertension; R13.10 Dysphagia, unspecified

== ENCOUNTER → 2019-09-12 | Outpatient (CLI) | payer MEDICARE, BC | LOC: LAB 10:18 | PROVIDERS: Family Medicine | DX: I82.409 Acute embolism and thrombosis of unspecified deep veins of unspecified lower extremity (principal) ==

== ENCOUNTER → 2019-09-26 | Outpatient (CLI) | payer MEDICARE, BC ==
[2019-09-26 10:45] LABS: PROTHROMBIN TIME 27.7 SECONDS (9.0-12.0)
== END ==
LOC: LAB 09:55
PROVIDERS: Family Medicine
DX: I82.409 Acute embolism and thrombosis of unspecified deep veins of unspecified lower extremity (principal)

== ENCOUNTER → 2019-10-10 | Outpatient (CLI) | payer MEDICARE, BC ==
[2019-10-10 11:36] LABS: PROTHROMBIN TIME 27.4 SECONDS (9.0-12.0)
== END ==
LOC: LAB 10:09
PROVIDERS: Family Medicine
DX: I82.409 Acute embolism and thrombosis of unspecified deep veins of unspecified lower extremity (principal)

== ENCOUNTER → 2019-10-24 | Outpatient (CLI) | payer MEDICARE, BC ==
[2019-10-24 10:54] LABS: PROTHROMBIN TIME 25.3 SECONDS (9.0-12.0)
== END ==
LOC: LAB 10:22
PROVIDERS: Family Medicine
DX: I82.409 Acute embolism and thrombosis of unspecified deep veins of unspecified lower extremity (principal)

== ENCOUNTER → 2019-11-17 | Outpatient (CLI) | payer MEDICARE, BC ==
[2019-11-17 11:26] LABS: PROTHROMBIN TIME 30.4 SECONDS (9.0-12.0)
== END ==
LOC: LAB 10:54
PROVIDERS: Family Medicine
DX: I82.409 Acute embolism and thrombosis of unspecified deep veins of unspecified lower extremity (principal)

== ENCOUNTER → 2019-12-14 | Outpatient (CLI) | payer MEDICARE, BC ==
[2019-12-14 11:37] LABS: PROTHROMBIN TIME 31.8 SECONDS (9.0-12.0)
== END ==
LOC: LAB 10:17
PROVIDERS: Family Medicine
DX: I82.409 Acute embolism and thrombosis of unspecified deep veins of unspecified lower extremity (principal)

== ENCOUNTER → 2019-12-28 | Outpatient (CLI) | payer MEDICARE, BC ==
[2019-12-28 11:13] LABS: PROTHROMBIN TIME 35.7 SECONDS (9.0-12.0)
== END ==
LOC: LAB 10:12
PROVIDERS: Family Medicine
DX: I82.409 Acute embolism and thrombosis of unspecified deep veins of unspecified lower extremity (principal)

== ENCOUNTER → 2020-01-11 | Outpatient (CLI) | payer MEDICARE, BC ==
[2020-01-11 10:42] LABS: PROTHROMBIN TIME 22.1 SECONDS (9.0-12.0)
== END ==
LOC: LAB 10:04
PROVIDERS: Family Medicine
DX: I82.409 Acute embolism and thrombosis of unspecified deep veins of unspecified lower extremity (principal)

== ENCOUNTER → 2020-01-31 | Outpatient (CLI) | payer MEDICARE, BC ==
[2020-01-31 15:02] LABS: PROTHROMBIN TIME 34.5 SECONDS (9.0-12.0)
== END ==
LOC: LAB 14:16
PROVIDERS: Family Medicine
DX: I82.409 Acute embolism and thrombosis of unspecified deep veins of unspecified lower extremity (principal)

== ENCOUNTER → 2020-02-08 | Outpatient (CLI) | payer MEDICARE, BC ==
[2020-02-08 11:24] LABS: ALBUMIN 3.8 g/dL (3.4-4.8)
[2020-02-08 11:27] LABS: TOTAL PROTEIN 7.6 g/dL (6.2-8.1)
[2020-02-08 11:29] LABS: TOTAL BILIRUBIN 0.8 mg/dL (0.2-1.2)
[2020-02-08 11:32] LABS: DIRECT BILIRUBIN 0.3 mg/dL (0.0-0.5)
== END ==
LOC: LAB 10:41
PROVIDERS: Internal Medicine
DX: I82.409 Acute embolism and thrombosis of unspecified deep veins of unspecified lower extremity (principal); E05.00 Thyrotoxicosis with diffuse goiter without thyrotoxic crisis or storm

== ENCOUNTER → 2020-02-26 | Outpatient (CLI) | payer MEDICARE, BC ==
[2020-02-26 11:48] LABS: PROTHROMBIN TIME 33.6 SECONDS (9.0-12.0)
== END ==
LOC: LAB 11:04
PROVIDERS: Family Medicine
DX: I82.409 Acute embolism and thrombosis of unspecified deep veins of unspecified lower extremity (principal)

== ENCOUNTER → 2020-03-12 | Outpatient (CLI) | payer MEDICARE, BC ==
[2020-03-12 12:00] LABS: PROTHROMBIN TIME 17.5 SECONDS (9.0-12.0)
== END ==
LOC: LAB 11:31
PROVIDERS: Family Medicine
DX: I82.409 Acute embolism and thrombosis of unspecified deep veins of unspecified lower extremity (principal)

== ENCOUNTER → 2020-03-20 | Outpatient (CLI) | payer MEDICARE, BC ==
[2020-03-20 14:53] LABS: PROTHROMBIN TIME 27.3 SECONDS (9.0-12.0)
== END ==
LOC: LAB 14:25
PROVIDERS: Family Medicine
DX: I82.409 Acute embolism and thrombosis of unspecified deep veins of unspecified lower extremity (principal)

== ENCOUNTER 2020-04-01 14:38 | Observation (INO) | payer MEDICARE, BC ==
[~2020-04-01] VITALS: Wt 105.5 kg
[~2020-04-01 14:38] MED LIST changes: -COZAAR 50MG50 MG/TAB PO; -VALSARTAN AND H PO; -WARFARIN SODIUM2 MG PO
[2020-04-01 17:09] LABS: PH-URINE 5.5 (5.0 - 8.0); URINE APPEARANCE CLEAR; URINE BILIRUBIN NEGATIVE (NEGATIVE); URINE BLOOD 50 ery/uL (NEGATIVE); URINE COLOR YELLOW; URINE GLUCOSE NEGATIVE (NEGATIVE); URINE KETONE NEGATIVE (NEGATIVE); URINE LEUKOCYTE ESTERASE TRACE (NEGATIVE); URINE NITRATE NEGATIVE (NEGATIVE); URINE PROTEIN(semi-quant) TRACE mg/dL (NEGATIVE); URINE UROBILINOGEN NORMAL (NORMAL)
[2020-04-01] MEDS ORDERED: WARFARIN SODIUM2 MG PO ×2 (22:24→22:25)
[2020-04-01] MEDS ORDERED: VALSARTAN AND H PO (22:45)
[2020-04-01 23:07] VITALS: BP 177/72
[2020-04-02 02:44] VITALS: BP 129/76
[2020-04-02 05:48] VITALS: BP 158/73
[2020-04-02 06:26] LABS: POTASSIUM 3.5 mmol/L (3.5-5.1)
[2020-04-02 06:27] LABS: CALCIUM 8.2 mg/dL (8.3-10.5)
[2020-04-02 10:31] VITALS: BP 148/77
[2020-04-02] MEDS ORDERED: COZAAR 50MG50 MG/TAB PO (11:45)
--- NOTE | 2020-04-02 13:30 | NUR ---
Pt sitting up in at edge of bed. Discharge instructions provided to pt and spouse. Pt verbalized understanding. Both parties denied questions or concerns. Pt's with belongings packed. Spouse had previously brought in home meds for confirmation of doses, all with pt.
[2020-04-02 13:55] VITALS: BP 161/78
== END 2020-04-02 13:57 | disposition home or self-care (01) ==
LOC: ED 14:38 → MED/SURG 21:05 → ED 21:05 → MED/SURG 04-02 13:57
PROVIDERS: Physician Assistant; ADMIT Nurse Practitioner Family
DX: I16.0 Hypertensive urgency (principal); G93.40 Encephalopathy, unspecified; E87.1 Hypo-osmolality and hyponatremia; R31.9 Hematuria, unspecified; I11.0 Hypertensive heart disease with heart failure; I50.9 Heart failure, unspecified; I48.91 Unspecified atrial fibrillation; Z79.01 Long term (current) use of anticoagulants; Z79.899 Other long term (current) drug therapy; Z95.0 Presence of cardiac pacemaker; Z98.890 Other specified postprocedural states; Z86.73 Personal history of transient ischemic attack (TIA), and cerebral infarction without residual deficits; Z88.1 Allergy status to other antibiotic agents; Z88.3 Allergy status to other anti-infective agents; Z88.0 Allergy status to penicillin; Z88.2 Allergy status to sulfonamides; Z82.3 Family history of stroke; Z91.040 Latex allergy status; Z80.1 Family history of malignant neoplasm of trachea, bronchus and lung
CPT/HCPCS: G0378; J7030

== ENCOUNTER → 2020-04-01 | Outpatient (CLI) | payer MEDICARE, BC ==
[~2020-04-01] MED LIST changes: +COZAAR 50MG50 MG/TAB PO; +VALSARTAN AND H PO; +WARFARIN SODIUM2 MG PO
[2020-04-01 14:15] LABS: EOS # 0.1 (0.04-0.40); EOS % 1.2 % (1.0-5.0); HEMATOCRIT 43.2 % (37.0-47.0); HEMOGLOBIN 14.3 g/dL (12.5-16.0); LYMPH# 2.2 (1.50-4.00); MEAN CELL VOLUME 91 fl (78-100); MEAN CORPUSCULAR HEMOGLOBIN 30 pg (27-31); MEAN CORPUSCULAR HGB CONC 33 g/dL (33-37); MEAN PLATELET VOLUME 8.7 fl (7.4-10.4); MONO # 0.9 (0.20-0.80); NEU # 7.1 (1.40-6.50); PLATELET COUNT 207 K/mm3 (130-400); RED BLOOD COUNT 4.76 M/mm3 (4.10-5.30); RED CELL DISTRIBUTION WIDTH 12.7 % (11.5-14.5); WHITE BLOOD COUNT 10.3 K/mm3 (4.8-10.8)
[2020-04-01 14:25] LABS: POTASSIUM 3.9 mmol/L (3.5-5.1)
[2020-04-01 14:26] LABS: CALCIUM 9.2 mg/dL (8.3-10.5)
[2020-04-01 14:27] LABS: TOTAL PROTEIN 7.6 g/dL (6.2-8.1)
[2020-04-01 14:29] LABS: TOTAL BILIRUBIN 0.7 mg/dL (0.2-1.2); URINE APPEARANCE CLEAR; URINE BILIRUBIN NEGATIVE (NEGATIVE); URINE BLOOD 50 ery/uL (NEGATIVE); URINE COLOR YELLOW; URINE GLUCOSE NEGATIVE (NEGATIVE); URINE KETONE NEGATIVE (NEGATIVE); URINE LEUKOCYTE ESTERASE TRACE (NEGATIVE); URINE NITRATE NEGATIVE (NEGATIVE); URINE PROTEIN(semi-quant) TRACE mg/dL (NEGATIVE); URINE UROBILINOGEN NORMAL (NORMAL)
== END ==
LOC: LAB 13:51
PROVIDERS: Family Medicine
DX: I82.409 Acute embolism and thrombosis of unspecified deep veins of unspecified lower extremity (principal); R41.0 Disorientation, unspecified

== ENCOUNTER → 2020-04-09 | Outpatient (CLI) | payer MEDICARE, BC ==
[2020-04-02 13:55] VITALS: BP 161/78
[~2020-04-09] MED LIST changes: +COZAAR 50MG50 MG/TAB PO; +VALSARTAN AND H PO; +WARFARIN SODIUM2 MG PO
[2020-04-09 14:21] LABS: EOS # 0.1 (0.04-0.40); HEMATOCRIT 44.3 % (37.0-47.0); HEMOGLOBIN 14.4 g/dL (12.5-16.0); LYMPH# 2.2 (1.50-4.00); MEAN CELL VOLUME 93 fl (78-100); MEAN CORPUSCULAR HEMOGLOBIN 30 pg (27-31); MEAN CORPUSCULAR HGB CONC 33 g/dL (33-37); MEAN PLATELET VOLUME 8.8 fl (7.4-10.4); MONO # 0.9 (0.20-0.80); NEU # 7.1 (1.40-6.50); PLATELET COUNT 202 K/mm3 (130-400); RED BLOOD COUNT 4.77 M/mm3 (4.10-5.30); RED CELL DISTRIBUTION WIDTH 13.2 % (11.5-14.5); WHITE BLOOD COUNT 10.4 K/mm3 (4.8-10.8)
[2020-04-09 14:24] LABS: URINE APPEARANCE CLOUDY; URINE BILIRUBIN NEGATIVE (NEGATIVE); URINE COLOR YELLOW; URINE GLUCOSE NEGATIVE (NEGATIVE); URINE KETONE NEGATIVE (NEGATIVE); URINE PROTEIN(semi-quant) 1+ mg/dL (NEGATIVE); URINE UROBILINOGEN NORMAL (NORMAL)
[2020-04-09 14:25] LABS: URINE BLOOD 50 ery/uL (NEGATIVE); URINE LEUKOCYTE ESTERASE 1+ (NEGATIVE); URINE NITRATE NEGATIVE (NEGATIVE)
[2020-04-09 14:31] LABS: ALBUMIN 3.9 g/dL (3.4-4.8); POTASSIUM 4.1 mmol/L (3.5-5.1)
[2020-04-09 14:32] LABS: CALCIUM 9.3 mg/dL (8.3-10.5)
[2020-04-09 14:34] LABS: TOTAL PROTEIN 7.6 g/dL (6.2-8.1)
[2020-04-09 14:35] LABS: TOTAL BILIRUBIN 0.6 mg/dL (0.2-1.2)
[2020-04-09 14:47] LABS: PROTHROMBIN TIME 38.1 SECONDS (9.0-12.0)
== END ==
LOC: LAB 14:01
PROVIDERS: Family Medicine
DX: I82.409 Acute embolism and thrombosis of unspecified deep veins of unspecified lower extremity (principal); I10 Essential (primary) hypertension; E87.1 Hypo-osmolality and hyponatremia; N39.0 Urinary tract infection, site not specified

== ENCOUNTER → 2020-04-12 | Outpatient (CLI) | payer MEDICARE, BC ==
[2020-04-02 13:55] VITALS: BP 161/78
[2020-04-12 13:04] LABS: PROTHROMBIN TIME 22.9 SECONDS (9.0-12.0)
== END ==
LOC: LAB 12:05
PROVIDERS: Family Medicine
DX: I82.409 Acute embolism and thrombosis of unspecified deep veins of unspecified lower extremity (principal); Z79.01 Long term (current) use of anticoagulants

== ENCOUNTER 2020-04-16 14:34 | Emergency (ER) | payer MEDICARE, BC ==
[2020-04-16 15:16] LABS: HEMATOCRIT 44.6 % (37.0-47.0); HEMOGLOBIN 14.4 g/dL (12.5-16.0); MEAN CELL VOLUME 93 fl (78-100); MEAN CORPUSCULAR HEMOGLOBIN 30 pg (27-31); MEAN CORPUSCULAR HGB CONC 32 g/dL (33-37); MEAN PLATELET VOLUME 9.1 fl (7.4-10.4); PLATELET COUNT 202 K/mm3 (130-400); RED BLOOD COUNT 4.79 M/mm3 (4.10-5.30); RED CELL DISTRIBUTION WIDTH 13.3 % (11.5-14.5); WHITE BLOOD COUNT 12.1 K/mm3 (4.8-10.8)
[2020-04-16 15:26] LABS: ALBUMIN 3.9 g/dL (3.4-4.8)
[2020-04-16 15:26] LABS: URINE APPEARANCE HAZY; URINE BILIRUBIN NEGATIVE (NEGATIVE); URINE BLOOD 250 ery/uL (NEGATIVE); URINE COLOR YELLOW; URINE GLUCOSE NEGATIVE (NEGATIVE); URINE KETONE NEGATIVE (NEGATIVE); URINE LEUKOCYTE ESTERASE 1+ (NEGATIVE); URINE NITRATE NEGATIVE (NEGATIVE); URINE PROTEIN(semi-quant) 2+ mg/dL (NEGATIVE); URINE UROBILINOGEN NORMAL (NORMAL)
[2020-04-16 15:27] LABS: POTASSIUM 4.4 mmol/L (3.5-5.1); SODIUM 136 mmol/L (136-145)
[2020-04-16 15:27] LABS: URINE MUCUS PRESENT (NOT PRESENT)
[2020-04-16 15:28] LABS: BAND 1 % (0-10); CALCIUM 9.4 mg/dL (8.3-10.5)
[2020-04-16 15:29] LABS: GLUCOSE 85 mg/dL (65-105); LYMPHOCYTE 13 % (20-51); MONOCYTE 11 % (3-10); NEUTROPHILS 73 % (42-75); TOTAL PROTEIN 7.9 g/dL (6.2-8.1)
[2020-04-16 15:30] LABS: CARBON DIOXIDE 24 mmol/L (23-31)
[2020-04-16 15:31] LABS: TOTAL BILIRUBIN 1.1 mg/dL (0.2-1.2)
[2020-04-16 15:35] LABS: ALT/SGPT 21 U/L (0-55); AST-SGOT 24 U/L (5-34)
[2020-04-16 15:42] LABS: TROPONIN-I < 0.03 ng/mL (<0.030)
[2020-04-16 16:46] LABS: PROTHROMBIN TIME 23.9 SECONDS (9.0-12.0)
[2020-04-16 20:09] VITALS: BP 158/83
[2020-04-17] MEDS ORDERED: DIOVAN 80MG80 MG PO (13:40)
[2020-04-17] MEDS ORDERED: CYMBALTA20 MG PO (13:41)
== END 2020-04-16 18:07 | disposition other institution (70) ==
LOC: ED 14:34
PROVIDERS: Nurse Practitioner Family
DX: I11.0 Hypertensive heart disease with heart failure (principal); I48.91 Unspecified atrial fibrillation; J44.9 Chronic obstructive pulmonary disease, unspecified; Z20.822 Contact with and (suspected) exposure to COVID-19; Z86.73 Personal history of transient ischemic attack (TIA), and cerebral infarction without residual deficits; Z86.718 Personal history of other venous thrombosis and embolism; Z95.9 Presence of cardiac and vascular implant and graft, unspecified; Z95.0 Presence of cardiac pacemaker; Z79.01 Long term (current) use of anticoagulants; Z87.891 Personal history of nicotine dependence
CPT/HCPCS: J0696

== ENCOUNTER 2020-04-16 18:07 | Inpatient (IN) | payer MEDICARE, BC ==
[2020-04-16 20:10] VITALS: BP 158/83
[2020-04-16 22:50] VITALS: BP 162/77
[2020-04-17 01:59] VITALS: BP 124/79
[2020-04-17 06:24] VITALS: BP 165/86
[2020-04-17 08:08] LABS: EOS # 0.6 (0.04-0.40); EOS % 7.3 % (1.0-5.0); HEMOGLOBIN 13.9 g/dL (12.5-16.0); LYMPH# 1.3 (1.50-4.00); MEAN CELL VOLUME 94 fl (78-100); MEAN CORPUSCULAR HEMOGLOBIN 30 pg (27-31); MEAN CORPUSCULAR HGB CONC 32 g/dL (33-37); MEAN PLATELET VOLUME 9.2 fl (7.4-10.4); MONO # 0.7 (0.20-0.80); NEU # 5.2 (1.40-6.50); PLATELET COUNT 181 K/mm3 (130-400); RED BLOOD COUNT 4.58 M/mm3 (4.10-5.30); RED CELL DISTRIBUTION WIDTH 13.3 % (11.5-14.5); WHITE BLOOD COUNT 7.8 K/mm3 (4.8-10.8)
[2020-04-17 08:24] LABS: POTASSIUM 5.5 mmol/L (3.5-5.1)
[2020-04-17 08:25] LABS: CALCIUM 9.3 mg/dL (8.3-10.5)
[2020-04-17 10:17] VITALS: BP 149/100
[2020-04-17] MEDS ORDERED: DIOVAN 80MG80 MG PO (13:40)
[2020-04-17] MEDS ORDERED: CYMBALTA20 MG PO (13:41)
[2020-04-17 13:46] VITALS: BP 144/77
[2020-04-17 14:10] LABS: POTASSIUM 4.2 mmol/L (3.5-5.1)
[2020-04-17 14:11] LABS: CALCIUM 9.1 mg/dL (8.3-10.5)
[2020-04-17 18:24] VITALS: BP 155/83
[2020-04-17 21:52] VITALS: BP 148/89
[2020-04-18] VITALS (7 sets, daily range): BP systolic 133–165; BP diastolic 81–95
[2020-04-18 05:32] LABS: BASO # 0.1 (0.02-0.10); EOS # 0.6 (0.04-0.40); EOS % 7.2 % (1.0-5.0); HEMATOCRIT 43.2 % (37.0-47.0); HEMOGLOBIN 13.9 g/dL (12.5-16.0); LYMPH# 2.1 (1.50-4.00); MEAN CELL VOLUME 94 fl (78-100); MEAN CORPUSCULAR HEMOGLOBIN 30 pg (27-31); MEAN CORPUSCULAR HGB CONC 32 g/dL (33-37); MEAN PLATELET VOLUME 9.1 fl (7.4-10.4); MONO # 0.6 (0.20-0.80); NEU # 4.7 (1.40-6.50); PLATELET COUNT 194 K/mm3 (130-400); RED BLOOD COUNT 4.61 M/mm3 (4.10-5.30); RED CELL DISTRIBUTION WIDTH 13.2 % (11.5-14.5)
[2020-04-18 05:44] LABS: POTASSIUM 4.2 mmol/L (3.5-5.1)
[2020-04-18 05:45] LABS: CALCIUM 9.2 mg/dL (8.3-10.5)
[2020-04-19 01:59] VITALS: BP 122/78
[2020-04-19 05:57] VITALS: BP 147/72
[2020-04-19 10:05] VITALS: BP 135/70
[2020-04-19 13:56] VITALS: BP 121/79
[2020-04-19] MEDS ORDERED: LASIX20 M1 PO (14:09)
[2020-04-19] MEDS ORDERED: CEPHALEXIN500 M1 PO (14:10)
== END 2020-04-19 15:51 | disposition home health service (06) | DRG 305 ==
LOC: MED/SURG 18:07
PROVIDERS: Physician Assistant; ADMIT Nurse Practitioner Family
DX: I16.1 Hypertensive emergency (principal); N39.0 Urinary tract infection, site not specified; I11.0 Hypertensive heart disease with heart failure; I50.9 Heart failure, unspecified; I48.91 Unspecified atrial fibrillation; I65.29 Occlusion and stenosis of unspecified carotid artery; J44.9 Chronic obstructive pulmonary disease, unspecified; I25.10 Atherosclerotic heart disease of native coronary artery without angina pectoris; G47.33 Obstructive sleep apnea (adult) (pediatric); E87.5 Hyperkalemia; R41.3 Other amnesia; E78.5 Hyperlipidemia, unspecified; Z79.01 Long term (current) use of anticoagulants; Z86.73 Personal history of transient ischemic attack (TIA), and cerebral infarction without residual deficits; Z86.718 Personal history of other venous thrombosis and embolism; Z95.5 Presence of coronary angioplasty implant and graft; Z88.0 Allergy status to penicillin; Z88.2 Allergy status to sulfonamides; Z88.1 Allergy status to other antibiotic agents; Z87.891 Personal history of nicotine dependence; Z90.710 Acquired absence of both cervix and uterus
CPT/HCPCS: J0696; J1940

== ENCOUNTER → 2020-04-23 | Outpatient (CLI) | payer MEDICARE, BC ==
[2020-04-19 13:56] VITALS: BP 121/79
[~2020-04-23] MED LIST changes: +AZITHROMYCIN 250MGPK PO; +CEPHALEXIN500 M1 PO; +CYMBALTA20 MG PO; +DIOVAN 80MG80 MG PO; +FLUCONAZOLE100 MG PO; +MACROBID 1100 MG/CAP PO; +MEMANTINE HCL10 MG PO; +PREDNISONE20 M1 PO; +PREMARIN30 GM VG; +TAPAZOLE 5MG TAB5 MG PO; +WARFARIN SODIUM4 MG PO; +ZOLPIDEM TART10 MG PO
[2020-04-23 13:50] LABS: PROTHROMBIN TIME 20.7 SECONDS (9.0-12.0)
== END ==
LOC: LAB 13:09
PROVIDERS: Family Medicine
DX: I82.409 Acute embolism and thrombosis of unspecified deep veins of unspecified lower extremity (principal); Z79.01 Long term (current) use of anticoagulants

== ENCOUNTER → 2020-04-24 | Outpatient (CLI) | payer MEDICARE, BC ==
[2020-04-19 13:56] VITALS: BP 121/79
[2020-04-25 05:19] LABS: URINE WBC 0 /hpf (0-3)
[2020-04-25 05:20] LABS: ALBUMIN 3.8 g/dL (3.4-4.8); BASO # 0.1 (0.02-0.10); CALCIUM 9.5 mg/dL (8.3-10.5); EOS # 0.2 (0.04-0.40); EOS % 1.9 % (1.0-5.0); HEMOGLOBIN 14.3 g/dL (12.5-16.0); LYMPH# 1.8 (1.50-4.00); MEAN CELL VOLUME 95 fl (78-100); MEAN CORPUSCULAR HEMOGLOBIN 30 pg (27-31); MEAN CORPUSCULAR HGB CONC 32 g/dL (33-37); MEAN PLATELET VOLUME 9.5 fl (7.4-10.4); MONO # 0.8 (0.20-0.80); NEU # 6.9 (1.40-6.50); PLATELET COUNT 220 K/mm3 (130-400); RED BLOOD COUNT 4.74 M/mm3 (4.10-5.30); RED CELL DISTRIBUTION WIDTH 13.4 % (11.5-14.5); TOTAL BILIRUBIN 0.7 mg/dL (0.2-1.2); TOTAL PROTEIN 7.7 g/dL (6.2-8.1); WHITE BLOOD COUNT 9.7 K/mm3 (4.8-10.8)
[2020-04-25 05:21] LABS: URINE APPEARANCE CLOUDY; URINE BILIRUBIN NEGATIVE (NEGATIVE); URINE BLOOD 250 ery/uL (NEGATIVE); URINE COLOR YELLOW; URINE KETONE NEGATIVE (NEGATIVE); URINE LEUKOCYTE ESTERASE NEGATIVE (NEGATIVE); URINE NITRATE NEGATIVE (NEGATIVE); URINE PROTEIN(semi-quant) TRACE mg/dL (NEGATIVE); URINE UROBILINOGEN NORMAL (NORMAL)
[2020-04-25 05:22] LABS: URINE GLUCOSE NEGATIVE (NEGATIVE)
[2020-04-25 05:24] LABS: PROTHROMBIN TIME 22.8 SECONDS (9.0-12.0)
== END ==
LOC: LAB 10:24
PROVIDERS: Family Medicine
DX: N18.30 Chronic kidney disease, stage 3 unspecified (principal); D64.9 Anemia, unspecified; N39.0 Urinary tract infection, site not specified; Z79.01 Long term (current) use of anticoagulants

== ENCOUNTER → 2020-05-03 | Outpatient (CLI) | payer MEDICARE, BC ==
[2020-04-19 13:56] VITALS: BP 121/79
[2020-05-03 13:57] LABS: URINE APPEARANCE HAZY; URINE BILIRUBIN NEGATIVE (NEGATIVE); URINE COLOR YELLOW; URINE GLUCOSE NEGATIVE (NEGATIVE); URINE KETONE NEGATIVE (NEGATIVE); URINE NITRATE NEGATIVE (NEGATIVE); URINE PROTEIN(semi-quant) TRACE mg/dL (NEGATIVE); URINE UROBILINOGEN NORMAL (NORMAL)
[2020-05-03 13:58] LABS: URINE BLOOD 50 ery/uL (NEGATIVE); URINE LEUKOCYTE ESTERASE NEGATIVE (NEGATIVE); URINE MUCUS PRESENT (NOT PRESENT)
== END ==
LOC: LAB 13:25
PROVIDERS: Family Medicine
DX: I16.1 Hypertensive emergency (principal); I11.0 Hypertensive heart disease with heart failure; I50.9 Heart failure, unspecified; Z87.440 Personal history of urinary (tract) infections

== ENCOUNTER → 2020-05-07 | Outpatient (CLI) | payer MEDICARE, BC ==
[2020-04-19 13:56] VITALS: BP 121/79
== END ==
LOC: LAB 14:04
PROVIDERS: Family Medicine
DX: I82.409 Acute embolism and thrombosis of unspecified deep veins of unspecified lower extremity (principal); I11.0 Hypertensive heart disease with heart failure; I50.9 Heart failure, unspecified; I16.1 Hypertensive emergency; Z79.01 Long term (current) use of anticoagulants

== ENCOUNTER → 2020-05-10 | Outpatient (CLI) | payer MEDICARE, BC ==
[2020-04-19 13:56] VITALS: BP 121/79
[2020-05-10 13:10] LABS: PROTHROMBIN TIME 37.5 SECONDS (9.0-12.0)
== END ==
LOC: LAB 12:14
PROVIDERS: Family Medicine
DX: I16.1 Hypertensive emergency (principal); I11.0 Hypertensive heart disease with heart failure; I50.9 Heart failure, unspecified

== ENCOUNTER → 2020-05-17 | Outpatient (CLI) | payer MEDICARE, BC ==
[2020-04-19 13:56] VITALS: BP 121/79
[2020-05-17 12:51] LABS: PROTHROMBIN TIME 22.5 SECONDS (9.0-12.0)
== END ==
LOC: LAB 11:44
PROVIDERS: Family Medicine
DX: I82.409 Acute embolism and thrombosis of unspecified deep veins of unspecified lower extremity (principal)

== ENCOUNTER → 2020-05-28 | Outpatient (CLI) | payer MEDICARE, BC ==
[2020-05-28 11:37] LABS: PROTHROMBIN TIME 25.7 SECONDS (9.0-12.0)
== END ==
LOC: LAB 10:53
PROVIDERS: Family Medicine
DX: I82.409 Acute embolism and thrombosis of unspecified deep veins of unspecified lower extremity (principal)

== ENCOUNTER → 2020-06-12 | Outpatient (CLI) | payer MEDICARE, BC | LOC: EDBD 14:05 → LAB 14:05 | PROVIDERS: Family Medicine | DX: I82.409 Acute embolism and thrombosis of unspecified deep veins of unspecified lower extremity (principal) ==

== ENCOUNTER → 2020-07-04 | Outpatient (CLI) | payer MEDICARE, BC | LOC: EDBD 14:02 → LAB 14:02 | DX: E05.00 Thyrotoxicosis with diffuse goiter without thyrotoxic crisis or storm (principal); I10 Essential (primary) hypertension; R13.10 Dysphagia, unspecified ==

== ENCOUNTER → 2020-07-09 | Outpatient (CLI) | payer MEDICARE, BC ==
[2020-07-09 10:23] LABS: PROTHROMBIN TIME 19.5 SECONDS (9.0-12.0)
== END ==
LOC: LAB 09:50 → EDBD 09:50
PROVIDERS: Family Medicine
DX: I82.409 Acute embolism and thrombosis of unspecified deep veins of unspecified lower extremity (principal)

== ENCOUNTER → 2020-07-17 | Outpatient (CLI) | payer MEDICARE, BC ==
[2020-07-17 10:09] LABS: PROTHROMBIN TIME 21.9 SECONDS (9.0-12.0)
== END ==
LOC: LAB 09:37 → EDBD 09:37
PROVIDERS: Family Medicine
DX: I48.91 Unspecified atrial fibrillation (principal)

== ENCOUNTER → 2020-07-24 | Outpatient (CLI) | payer MEDICARE, BC ==
[2020-07-24 10:42] LABS: PROTHROMBIN TIME 22.4 SECONDS (9.0-12.0)
== END ==
LOC: LAB 10:17 → EDBD 10:17
PROVIDERS: Family Medicine
DX: I48.91 Unspecified atrial fibrillation (principal)

== ENCOUNTER → 2020-08-08 | Outpatient (CLI) | payer MEDICARE, BC ==
[2020-08-08 10:53] LABS: PROTHROMBIN TIME 24.9 SECONDS (9.0-12.0)
== END ==
LOC: LAB 10:17 → EDBD 10:17
PROVIDERS: Family Medicine
DX: I48.91 Unspecified atrial fibrillation (principal)

== ENCOUNTER → 2020-08-27 | Outpatient (CLI) | payer MEDICARE, BC ==
[2020-08-27 11:34] LABS: PROTHROMBIN TIME 19.4 SECONDS (9.0-12.0)
== END ==
LOC: EDBD 10:51 → LAB 10:51
PROVIDERS: Family Medicine
DX: I48.91 Unspecified atrial fibrillation (principal)

== ENCOUNTER → 2020-08-30 | Outpatient (CLI) | payer MEDICARE, BC | LOC: LAB 10:26 → EDBD 10:26 | PROVIDERS: Family Medicine | DX: I48.91 Unspecified atrial fibrillation (principal) ==

== ENCOUNTER → 2020-09-09 | Outpatient (CLI) | payer MEDICARE, BC ==
[2020-09-09 14:53] LABS: BASO # 0.03 (0.02-0.10); EOS # 0.15 (0.04-0.40); EOS % 1.8 % (1.0-5.0); HEMATOCRIT 45.6 % (37.0-47.0); MEAN CELL VOLUME 93 fl (78-100); MEAN CORPUSCULAR HEMOGLOBIN 31 pg (27-31); MEAN CORPUSCULAR HGB CONC 33 g/dL (33-37); MEAN PLATELET VOLUME 9.3 fl (7.4-10.4); MONO # 0.63 (0.20-0.80); PLATELET COUNT 162 K/mm3 (130-400); RED BLOOD COUNT 4.91 M/mm3 (4.10-5.30); RED CELL DISTRIBUTION WIDTH 12.9 % (11.5-14.5); WHITE BLOOD COUNT 8.3 K/mm3 (4.8-10.8)
[2020-09-09 15:01] LABS: ALBUMIN 3.9 g/dL (3.4-4.8); POTASSIUM 5.4 mmol/L (3.5-5.1)
[2020-09-09 15:02] LABS: CALCIUM 10.1 mg/dL (8.3-10.5)
[2020-09-09 15:03] LABS: TOTAL PROTEIN 8.1 g/dL (6.2-8.1)
[2020-09-09 15:05] LABS: TOTAL BILIRUBIN 0.8 mg/dL (0.2-1.2)
[2020-09-09 15:29] LABS: URINE COLOR YELLOW
[2020-09-09 15:30] LABS: URINE APPEARANCE HAZY; URINE BILIRUBIN NEGATIVE (NEGATIVE); URINE BLOOD 250 ery/uL (NEGATIVE); URINE GLUCOSE NEGATIVE (NEGATIVE); URINE KETONE NEGATIVE (NEGATIVE); URINE LEUKOCYTE ESTERASE 1+ (NEGATIVE); URINE NITRATE NEGATIVE (NEGATIVE); URINE PROTEIN(semi-quant) TRACE mg/dL (NEGATIVE); URINE UROBILINOGEN NORMAL (NORMAL)
[2020-09-09 15:33] LABS: PROTHROMBIN TIME 19.9 SECONDS (9.0-12.0)
== END ==
LOC: EDBD 14:15 → LAB 14:15
PROVIDERS: Family Medicine
DX: Z00.00 Encounter for general adult medical examination without abnormal findings (principal); I48.91 Unspecified atrial fibrillation; E05.00 Thyrotoxicosis with diffuse goiter without thyrotoxic crisis or storm; E78.5 Hyperlipidemia, unspecified; R41.3 Other amnesia; N39.0 Urinary tract infection, site not specified

== ENCOUNTER 2020-09-16 17:54 | Emergency (ER) | payer MEDICARE, BC ==
[~2020-09-16 17:54] MED LIST changes: -AZITHROMYCIN 250MGPK PO; -FLUCONAZOLE100 MG PO; -MACROBID 1100 MG/CAP PO; -MEMANTINE HCL10 MG PO; -PREDNISONE20 M1 PO; -PREMARIN30 GM VG; -TAPAZOLE 5MG TAB5 MG PO; -WARFARIN SODIUM4 MG PO; -ZOLPIDEM TART10 MG PO
[2020-09-16] MEDS ORDERED: FLUCONAZOLE100 MG PO (18:08)
[2020-09-16] MEDS ORDERED: WARFARIN SODIUM4 MG PO (18:08)
[2020-09-16] MEDS ORDERED: MACROBID 1100 MG/CAP PO (18:08)
[2020-09-16] MEDS ORDERED: MEMANTINE HCL10 MG PO (18:09)
[2020-09-16] MEDS ORDERED: TAPAZOLE 5MG TAB5 MG PO (18:09)
[2020-09-16 19:45] VITALS: BP 181/91
== END 2020-09-16 19:45 | disposition home or self-care (01) ==
LOC: ED 17:54 → EDBD 18:50 → ED 19:45
DX: R79.1 Abnormal coagulation profile (principal); I11.0 Hypertensive heart disease with heart failure; I50.9 Heart failure, unspecified; I48.91 Unspecified atrial fibrillation; J44.9 Chronic obstructive pulmonary disease, unspecified; Z86.73 Personal history of transient ischemic attack (TIA), and cerebral infarction without residual deficits; Z79.01 Long term (current) use of anticoagulants; Z79.899 Other long term (current) drug therapy

== ENCOUNTER → 2020-09-16 | Outpatient (CLI) | payer MEDICARE, BC ==
[2020-09-16 16:37] LABS: PROTHROMBIN TIME 75.7 SECONDS (9.0-12.0)
== END ==
LOC: EDBD 14:47 → LAB 14:47
PROVIDERS: Family Medicine
DX: I48.91 Unspecified atrial fibrillation (principal)

== ENCOUNTER → 2020-09-18 | Outpatient (CLI) | payer MEDICARE, BC ==
[~2020-09-18] MED LIST changes: +AZITHROMYCIN 250MGPK PO; +FLUCONAZOLE100 MG PO; +MACROBID 1100 MG/CAP PO; +MEMANTINE HCL10 MG PO; +PREDNISONE20 M1 PO; +PREMARIN30 GM VG; +TAPAZOLE 5MG TAB5 MG PO; +WARFARIN SODIUM4 MG PO; +ZOLPIDEM TART10 MG PO
[2020-09-18 09:07] LABS: BASO # 0.03 (0.02-0.10); EOS # 0.53 (0.04-0.40); EOS % 5.7 % (1.0-5.0); HEMATOCRIT 47.3 % (37.0-47.0); MEAN CELL VOLUME 94 fl (78-100); MEAN CORPUSCULAR HEMOGLOBIN 30 pg (27-31); MEAN CORPUSCULAR HGB CONC 32 g/dL (33-37); MEAN PLATELET VOLUME 9.1 fl (7.4-10.4); MONO # 0.74 (0.20-0.80); NEU # 6.41 (1.40-6.50); PLATELET COUNT 172 K/mm3 (130-400); RED BLOOD COUNT 5.03 M/mm3 (4.10-5.30); RED CELL DISTRIBUTION WIDTH 12.7 % (11.5-14.5); WHITE BLOOD COUNT 9.2 K/mm3 (4.8-10.8)
[2020-09-18 09:10] LABS: ALBUMIN 3.7 g/dL (3.4-4.8)
[2020-09-18 09:12] LABS: PROTHROMBIN TIME 31.5 SECONDS (9.0-12.0)
[2020-09-18 09:13] LABS: TOTAL PROTEIN 7.7 g/dL (6.2-8.1)
[2020-09-18 09:14] LABS: TOTAL BILIRUBIN 0.8 mg/dL (0.2-1.2)
[2020-09-18 09:18] LABS: DIRECT BILIRUBIN 0.3 mg/dL (0.0-0.5)
== END ==
LOC: EDBD 08:30 → LAB 08:30
PROVIDERS: Family Medicine
DX: I48.91 Unspecified atrial fibrillation (principal); E05.00 Thyrotoxicosis with diffuse goiter without thyrotoxic crisis or storm; I10 Essential (primary) hypertension; R13.10 Dysphagia, unspecified; E04.2 Nontoxic multinodular goiter

== ENCOUNTER → 2020-09-23 | Outpatient (CLI) | payer MEDICARE, BC ==
[2020-09-23 15:27] LABS: PROTHROMBIN TIME 64.7 SECONDS (9.0-12.0)
[2020-09-23 16:09] LABS: URINE APPEARANCE HAZY; URINE COLOR YELLOW
[2020-09-23 16:10] LABS: URINE BILIRUBIN NEGATIVE (NEGATIVE); URINE BLOOD 250 ery/uL (NEGATIVE); URINE GLUCOSE NEGATIVE (NEGATIVE); URINE KETONE NEGATIVE (NEGATIVE); URINE LEUKOCYTE ESTERASE 1+ (NEGATIVE); URINE MUCUS PRESENT (NOT PRESENT); URINE NITRATE NEGATIVE (NEGATIVE); URINE PROTEIN(semi-quant) TRACE mg/dL (NEGATIVE); URINE UROBILINOGEN NORMAL (NORMAL); URINE WBC 16-30 /hpf (0-3)
== END ==
LOC: EDBD 14:38 → LAB 14:38
PROVIDERS: Family Medicine
DX: R30.9 Painful micturition, unspecified (principal)

== ENCOUNTER → 2020-09-24 | Outpatient (CLI) | payer MEDICARE, BC ==
[2020-09-24 13:01] LABS: PROTHROMBIN TIME 55.8 SECONDS (9.0-12.0)
== END ==
LOC: EDBD 11:10 → LAB 11:10
PROVIDERS: Family Medicine
DX: I48.91 Unspecified atrial fibrillation (principal)

== ENCOUNTER → 2020-09-27 | Outpatient (CLI) | payer MEDICARE, BC ==
[2020-09-27 12:24] LABS: PROTHROMBIN TIME 23.4 SECONDS (9.0-12.0)
== END ==
LOC: LAB 10:25 → EDBD 10:25
PROVIDERS: Family Medicine
DX: I48.91 Unspecified atrial fibrillation (principal)

== ENCOUNTER → 2020-10-04 | Outpatient (CLI) | payer MEDICARE, BC ==
[2020-10-04 12:00] LABS: PROTHROMBIN TIME 26.9 SECONDS (9.0-12.0)
== END ==
LOC: LAB 11:25
PROVIDERS: Family Medicine
DX: I48.91 Unspecified atrial fibrillation (principal)

== ENCOUNTER 2020-10-21 13:36 | Emergency (ER) | payer MEDICARE, BC ==
[~2020-10-21] VITALS: Ht 165.1 cm; Wt 106.2 kg
[~2020-10-21 13:36] MED LIST changes: -AZITHROMYCIN 250MGPK PO; -PREDNISONE20 M1 PO; -PREMARIN30 GM VG; -ZOLPIDEM TART10 MG PO
[2020-10-21 13:46] LABS: BASO # 0.03 (0.02-0.10); EOS # 0.14 (0.04-0.40); EOS % 1.7 % (1.0-5.0); HEMATOCRIT 47.6 % (37.0-47.0); LYMPH# 1.88 (1.50-4.00); MEAN CELL VOLUME 96 fl (78-100); MEAN CORPUSCULAR HEMOGLOBIN 30 pg (27-31); MEAN CORPUSCULAR HGB CONC 32 g/dL (33-37); MEAN PLATELET VOLUME 9.7 fl (7.4-10.4); MONO # 0.47 (0.20-0.80); NEU # 5.65 (1.40-6.50); PLATELET COUNT 178 K/mm3 (130-400); RED BLOOD COUNT 4.98 M/mm3 (4.10-5.30); WHITE BLOOD COUNT 8.2 K/mm3 (4.8-10.8)
[2020-10-21 13:50] LABS: ALBUMIN 3.6 g/dL (3.4-4.8); POTASSIUM 4.1 mmol/L (3.5-5.1); SODIUM 140 mmol/L (136-145)
[2020-10-21 13:51] LABS: CALCIUM 10.1 mg/dL (8.3-10.5)
[2020-10-21 13:52] LABS: GLUCOSE 117 mg/dL (65-105)
[2020-10-21 13:53] LABS: TOTAL PROTEIN 7.9 g/dL (6.2-8.1)
[2020-10-21 13:54] LABS: CARBON DIOXIDE 26 mmol/L (23-31); TOTAL BILIRUBIN 0.7 mg/dL (0.2-1.2)
[2020-10-21 13:58] LABS: AST-SGOT 27 U/L (5-34)
[2020-10-21 13:59] LABS: ALT/SGPT 15 U/L (0-55)
[2020-10-21 14:00] LABS: LIPASE 37 U/L (8-78)
[2020-10-21 14:09] LABS: TROPONIN-I < 0.03 ng/mL (<0.030)
[2020-10-21] MEDS ORDERED: ZOLPIDEM TART10 MG PO (14:18)
[2020-10-21] MEDS ORDERED: WARFARIN SODIUM2 MG PO (14:21)
[2020-10-21] MEDS ORDERED: LASIX20 M1 PO (14:22)
[2020-10-21] MEDS ORDERED: PREMARIN30 GM VG (14:23)
[2020-10-21 14:30] LABS: D-DIMER 0.97 mg/L FEU (0.15-0.50)
[2020-10-21 16:23] LABS: URINE APPEARANCE HAZY; URINE BILIRUBIN NEGATIVE (NEGATIVE); URINE COLOR YELLOW; URINE GLUCOSE NEGATIVE (NEGATIVE); URINE KETONE NEGATIVE (NEGATIVE); URINE PROTEIN(semi-quant) NEGATIVE (NEGATIVE); URINE UROBILINOGEN NORMAL (NORMAL)
[2020-10-21 16:24] LABS: URINE BLOOD TRACE (NEGATIVE); URINE LEUKOCYTE ESTERASE TRACE (NEGATIVE); URINE NITRATE NEGATIVE (NEGATIVE)
[2020-10-21] MEDS ORDERED: AZITHROMYCIN 250MGPK PO (18:49)
[2020-10-21] MEDS ORDERED: PREDNISONE20 M1 PO (18:49)
[2020-10-21 19:01] VITALS: BP 188/72
== END 2020-10-21 19:00 | disposition home or self-care (01) ==
LOC: ED 13:36
PROVIDERS: Nurse Practitioner
DX: J40 Bronchitis, not specified as acute or chronic (principal); I10 Essential (primary) hypertension; R79.1 Abnormal coagulation profile; R79.0 Abnormal level of blood mineral; E66.9 Obesity, unspecified; G47.30 Sleep apnea, unspecified; E05.00 Thyrotoxicosis with diffuse goiter without thyrotoxic crisis or storm; G45.1 Carotid artery syndrome (hemispheric); Z79.01 Long term (current) use of anticoagulants; Z79.899 Other long term (current) drug therapy; Z68.38 Body mass index [BMI] 38.0-38.9, adult; Z20.822 Contact with and (suspected) exposure to COVID-19

== ENCOUNTER → 2020-10-21 | Outpatient (CLI) | payer MEDICARE, BC ==
[2020-10-21 11:45] LABS: PROTHROMBIN TIME 13.6 SECONDS (9.0-12.0)
== END ==
LOC: LAB 10:35
PROVIDERS: Family Medicine
DX: Z20.822 Contact with and (suspected) exposure to COVID-19 (principal); G45.1 Carotid artery syndrome (hemispheric)

== ENCOUNTER → 2020-10-25 | Outpatient (CLI) | payer MEDICARE, BC ==
[~2020-10-25] MED LIST changes: +AZITHROMYCIN 250MGPK PO; +PREDNISONE20 M1 PO; +PREMARIN30 GM VG; +ZOLPIDEM TART10 MG PO
[2020-10-25 12:11] LABS: PROTHROMBIN TIME 18.3 SECONDS (9.0-12.0)
== END ==
LOC: LAB 10:38
PROVIDERS: Family Medicine
DX: I48.91 Unspecified atrial fibrillation (principal)

== ENCOUNTER → 2020-11-01 | Outpatient (CLI) | payer MEDICARE, BC ==
[2020-11-01 10:54] LABS: PROTHROMBIN TIME 27.2 SECONDS (9.0-12.0)
== END ==
LOC: LAB 10:21
PROVIDERS: Family Medicine
DX: I48.91 Unspecified atrial fibrillation (principal)

== ENCOUNTER → 2020-11-20 | Outpatient (CLI) | payer MEDICARE, BC ==
[2020-11-20 12:49] LABS: PROTHROMBIN TIME 21.6 SECONDS (9.0-12.0)
== END ==
LOC: RAD 11:29
PROVIDERS: Family Medicine
DX: I48.91 Unspecified atrial fibrillation (principal); M79.604 Pain in right leg

== ENCOUNTER → 2020-11-22 | Outpatient (CLI) | payer MEDICARE, BC | LOC: RAD 12:56 | DX: M79.604 Pain in right leg (principal) ==

== ENCOUNTER → 2020-12-05 | Outpatient (CLI) | payer MEDICARE, BC ==
[2020-12-05 12:04] LABS: PROTHROMBIN TIME 24.9 SECONDS (9.0-12.0)
== END ==
LOC: LAB 11:06
PROVIDERS: Family Medicine
DX: I48.91 Unspecified atrial fibrillation (principal)

== ENCOUNTER → 2020-12-23 | Outpatient (CLI) | payer MEDICARE, BC | LOC: LAB 11:14 | DX: E05.90 Thyrotoxicosis, unspecified without thyrotoxic crisis or storm (principal) ==

== ENCOUNTER → 2020-12-26 | Outpatient (CLI) | payer MEDICARE, BC ==
[2020-12-26 12:34] LABS: PROTHROMBIN TIME 18.9 SECONDS (9.0-12.0)
== END ==
LOC: LAB 11:04
PROVIDERS: Family Medicine
DX: I48.91 Unspecified atrial fibrillation (principal)

== ENCOUNTER → 2021-01-01 | Outpatient (CLI) | payer MEDICARE, BC ==
[2021-01-01 11:51] LABS: PROTHROMBIN TIME 25.1 SECONDS (9.0-12.0)
== END ==
LOC: LAB 11:06
PROVIDERS: Family Medicine
DX: I48.91 Unspecified atrial fibrillation (principal)

== ENCOUNTER → 2021-01-20 | Outpatient (CLI) | payer MEDICARE, BC ==
[2021-01-20 11:15] LABS: PROTHROMBIN TIME 33.7 SECONDS (9.0-12.0)
== END ==
LOC: LAB 10:49
PROVIDERS: Family Medicine
DX: G45.1 Carotid artery syndrome (hemispheric) (principal)

== ENCOUNTER → 2021-01-24 | Outpatient (CLI) | payer MEDICARE, BC ==
[2021-01-24 11:24] LABS: PROTHROMBIN TIME 14.2 SECONDS (9.0-12.0)
== END ==
LOC: LAB 10:37
PROVIDERS: Family Medicine
DX: G45.1 Carotid artery syndrome (hemispheric) (principal)

== ENCOUNTER → 2021-01-31 | Outpatient (CLI) | payer MEDICARE, BC ==
[2021-01-31 11:03] LABS: PROTHROMBIN TIME 27.5 SECONDS (9.0-12.0)
== END ==
LOC: LAB 10:28
PROVIDERS: Family Medicine
DX: G45.1 Carotid artery syndrome (hemispheric) (principal)

== ENCOUNTER → 2021-02-11 | Outpatient (CLI) | payer MEDICARE, BC | LOC: RAD 11:30 → VAS 11:38 | DX: I65.23 Occlusion and stenosis of bilateral carotid arteries (principal) ==

== ENCOUNTER → 2021-02-14 | Outpatient (CLI) | payer MEDICARE, BC ==
[2021-02-14 12:24] LABS: PROTHROMBIN TIME 30.7 SECONDS (9.0-12.0)
== END ==
LOC: LAB 10:47
PROVIDERS: Family Medicine
DX: G45.1 Carotid artery syndrome (hemispheric) (principal)

== ENCOUNTER → 2021-02-26 | Outpatient (CLI) | payer MEDICARE, BC ==
[2021-02-26 14:41] LABS: PROTHROMBIN TIME 37.3 SECONDS (9.0-12.0)
== END ==
LOC: LAB 14:02
PROVIDERS: Family Medicine
DX: G45.1 Carotid artery syndrome (hemispheric) (principal)

== ENCOUNTER → 2021-02-28 | Outpatient (CLI) | payer MEDICARE, BC ==
[2021-02-28 10:54] LABS: PROTHROMBIN TIME 23.8 SECONDS (9.0-12.0)
== END ==
LOC: LAB 10:21
PROVIDERS: Family Medicine
DX: G45.1 Carotid artery syndrome (hemispheric) (principal)

== ENCOUNTER → 2021-03-07 | Outpatient (CLI) | payer MEDICARE, BC ==
[2021-03-07 11:46] LABS: PROTHROMBIN TIME 40.9 SECONDS (9.0-12.0)
== END ==
LOC: LAB 10:42
PROVIDERS: Family Medicine
DX: Z51.81 Encounter for therapeutic drug level monitoring (principal)

== ENCOUNTER → 2021-03-17 | Outpatient (CLI) | payer MEDICARE, BC ==
[2021-03-17 10:58] LABS: PROTHROMBIN TIME 28.9 SECONDS (9.0-12.0)
== END ==
LOC: LAB 10:20
PROVIDERS: Family Medicine
DX: Z51.81 Encounter for therapeutic drug level monitoring (principal); E05.90 Thyrotoxicosis, unspecified without thyrotoxic crisis or storm

== ENCOUNTER → 2021-04-16 | Outpatient (CLI) | payer MEDICARE, BC ==
[2021-04-16 13:15] LABS: PROTHROMBIN TIME 34.4 SECONDS (9.0-12.0)
== END ==
LOC: LAB 11:59
PROVIDERS: Family Medicine
DX: G45.1 Carotid artery syndrome (hemispheric) (principal)

== ENCOUNTER → 2021-04-21 | Outpatient (CLI) | payer MEDICARE, BC ==
[2021-04-21 12:48] LABS: PROTHROMBIN TIME 15.5 SECONDS (9.0-12.0)
== END ==
LOC: LAB 11:49
PROVIDERS: Internal Medicine Endocrinology, Diabetes & Metabolism
DX: G45.1 Carotid artery syndrome (hemispheric) (principal); E05.90 Thyrotoxicosis, unspecified without thyrotoxic crisis or storm

== ENCOUNTER → 2021-04-25 | Outpatient (CLI) | payer MEDICARE, BC ==
[2021-04-25 14:05] LABS: PROTHROMBIN TIME 16.6 SECONDS (9.0-12.0)
== END ==
LOC: LAB 13:23
PROVIDERS: Family Medicine
DX: G45.1 Carotid artery syndrome (hemispheric) (principal)

== ENCOUNTER → 2021-04-28 | Outpatient (CLI) | payer MEDICARE, BC ==
[2021-04-28 14:27] LABS: PROTHROMBIN TIME 19.5 SECONDS (9.0-12.0)
== END ==
LOC: LAB 13:56
PROVIDERS: Family Medicine
DX: Z51.81 Encounter for therapeutic drug level monitoring (principal)

== ENCOUNTER → 2021-05-06 | Outpatient (CLI) | payer MEDICARE, BC ==
[2021-05-06 14:17] LABS: PROTHROMBIN TIME 31.2 SECONDS (9.0-12.0)
== END ==
LOC: LAB 13:15
PROVIDERS: Family Medicine
DX: Z51.81 Encounter for therapeutic drug level monitoring (principal)

== ENCOUNTER → 2021-05-22 | Outpatient (CLI) | payer MEDICARE, BC ==
[2021-05-22 16:46] LABS: PROTHROMBIN TIME 38.7 SECONDS (9.0-12.0)
== END ==
LOC: LAB 14:55
PROVIDERS: Family Medicine
DX: Z51.81 Encounter for therapeutic drug level monitoring (principal)

== ENCOUNTER → 2021-06-02 | Outpatient (CLI) | payer MEDICARE, BC | LOC: LAB 10:51 | PROVIDERS: Family Medicine | DX: G45.1 Carotid artery syndrome (hemispheric) (principal) ==

== ENCOUNTER → 2021-06-25 | Outpatient (CLI) | payer MEDICARE, BC ==
[2021-06-25 11:56] LABS: PROTHROMBIN TIME 32.3 SECONDS (9.0-12.0)
== END ==
LOC: LAB 11:27
PROVIDERS: Family Medicine
DX: G45.1 Carotid artery syndrome (hemispheric) (principal)

== ENCOUNTER → 2021-07-01 | Outpatient (CLI) | payer MEDICARE, BC ==
[2021-07-01 12:01] LABS: PROTHROMBIN TIME 25.3 SECONDS (9.0-12.0)
== END ==
LOC: LAB 10:59
PROVIDERS: Family Medicine
DX: G45.1 Carotid artery syndrome (hemispheric) (principal)

== ENCOUNTER → 2021-07-15 | Outpatient (CLI) | payer MEDICARE, BC ==
[2021-07-15 15:42] LABS: PROTHROMBIN TIME 24.8 SECONDS (9.0-12.0)
== END ==
LOC: LAB 15:10
PROVIDERS: Family Medicine
DX: G45.1 Carotid artery syndrome (hemispheric) (principal)

== ENCOUNTER → 2021-08-05 | Outpatient (CLI) | payer MEDICARE, BC ==
[2021-08-05 15:01] LABS: PROTHROMBIN TIME 26.3 SECONDS (9.0-12.0)
== END ==
LOC: LAB 14:29
PROVIDERS: Family Medicine
DX: G45.1 Carotid artery syndrome (hemispheric) (principal)

== ENCOUNTER → 2021-09-02 | Outpatient (CLI) | payer MEDICARE, BC ==
[2021-09-02 11:41] LABS: PROTHROMBIN TIME 28.7 SECONDS (9.0-12.0)
== END ==
LOC: LAB 11:08
PROVIDERS: Family Medicine
DX: G45.1 Carotid artery syndrome (hemispheric) (principal)

== ENCOUNTER → 2021-09-30 | Outpatient (CLI) | payer MEDICARE, BC ==
[2021-09-30 11:16] LABS: PROTHROMBIN TIME 18.2 SECONDS (9.0-12.0)
== END ==
LOC: LAB 10:33
PROVIDERS: Family Medicine
DX: G45.1 Carotid artery syndrome (hemispheric) (principal)

== ENCOUNTER → 2021-10-03 | Outpatient (CLI) | payer MEDICARE, BC ==
[2021-10-03 11:12] LABS: PROTHROMBIN TIME 20.9 SECONDS (9.0-12.0)
== END ==
LOC: LAB 10:43
PROVIDERS: Family Medicine
DX: G45.1 Carotid artery syndrome (hemispheric) (principal)

== ENCOUNTER → 2021-10-10 | Outpatient (CLI) | payer MEDICARE, BC ==
[2021-10-10 15:47] LABS: BASO # 0.05 K/mm3 (0.02-0.10); EOS # 0.13 K/mm3 (0.04-0.40); EOS % 1.3 % (1.0-5.0); HEMATOCRIT 48.5 % (37.0-47.0); HEMOGLOBIN 15.4 g/dL (12.5-16.0); LYMPH# 2.34 K/mm3 (1.50-4.00); MEAN CELL VOLUME 97 fl (78-100); MEAN CORPUSCULAR HEMOGLOBIN 31 pg (27-31); MEAN CORPUSCULAR HGB CONC 32 g/dL (33-37); MEAN PLATELET VOLUME 9.4 fl (7.4-10.4); MONO # 0.71 K/mm3 (0.20-0.80); NEU # 6.79 K/mm3 (1.40-6.50); PLATELET COUNT 163 K/mm3 (130-400); RED BLOOD COUNT 5.02 M/mm3 (4.10-5.30); RED CELL DISTRIBUTION WIDTH 12.6 % (11.5-14.5); WHITE BLOOD COUNT 10.1 K/mm3 (4.8-10.8)
[2021-10-10 15:51] LABS: POTASSIUM 4.1 mmol/L (3.5-5.1)
[2021-10-10 15:52] LABS: ALBUMIN 4.1 g/dL (3.4-4.8)
[2021-10-10 15:54] LABS: TOTAL PROTEIN 8.1 g/dL (6.2-8.1)
[2021-10-10 15:56] LABS: TOTAL BILIRUBIN 0.7 mg/dL (0.2-1.2)
== END ==
LOC: LAB 15:25
PROVIDERS: Family Medicine
DX: Z00.00 Encounter for general adult medical examination without abnormal findings (principal); I65.29 Occlusion and stenosis of unspecified carotid artery; M81.0 Age-related osteoporosis without current pathological fracture; E05.00 Thyrotoxicosis with diffuse goiter without thyrotoxic crisis or storm; M79.7 Fibromyalgia; I10 Essential (primary) hypertension; G25.81 Restless legs syndrome; E78.2 Mixed hyperlipidemia; E66.9 Obesity, unspecified; E55.9 Vitamin D deficiency, unspecified

== ENCOUNTER → 2021-11-12 | Outpatient (CLI) | payer MEDICARE, BC ==
[2021-11-12 17:23] LABS: PROTHROMBIN TIME 44.7 SECONDS (9.0-12.0)
== END ==
LOC: LAB 16:08
PROVIDERS: Family Medicine
DX: G45.1 Carotid artery syndrome (hemispheric) (principal)

== ENCOUNTER → 2021-11-14 | Outpatient (CLI) | payer MEDICARE, BC ==
[2021-11-14 13:12] LABS: PROTHROMBIN TIME 26.5 SECONDS (9.0-12.0)
== END ==
LOC: LAB 12:40
PROVIDERS: Family Medicine
DX: G45.1 Carotid artery syndrome (hemispheric) (principal)

== ENCOUNTER 2022-01-27 17:39 | Inpatient (IN) | payer MEDICARE, BC ==
[~2022-01-27] VITALS: Ht 167.6 cm; Wt 98.6 kg
--- NOTE | 2022-01-27 20:20 | NUR ---
Report received from Alka ARSHAD. Patient sitting up in recliner with visitor at bedside. A/O x4. Rates pain to L wrist area and R shoulder /10. Splint in place to LFA, encouraged patient to keep elevated. CMS intact to LUE. RUE with limited ROM at shoulder area secondary to pain. Neuro checks WNL with limited UE mobility. Assessment completed. Discussed medications, use of bed/chair alarms, needing to call for assist before getting up to move. Educatated on neuro checks Q2 hours. Family to bring in Valsartan tomorrow. Denies further questions, wants or needs at this time. Awaiting analgesic orders.
--- NOTE | 2022-01-27 21:00 | NUR ---
Assisted to BR and to bed by HEATING TECHNICIAN. Scheduled HS medications taken, Ambien on hold per Dr. forde. Ice applied to R shoulder. LUE elevated on pillow, Bed alarm on. Call light in reach.
[2022-01-27 21:29] VITALS: BP 150/76
--- NOTE | 2022-01-27 23:49 | NUR ---
Sleeping, awakens easily with verbal stimuli. Oriented x4. Neuro's WNL.
[2022-01-28 02:04] VITALS: BP 131/78
--- NOTE | 2022-01-28 02:04 | NUR ---
VSS, awakens easily with verbal stimuli. Has H/A and some R arm pain with movement. States "I wasn't thinking of this one",referring to L arm fx. Advised can have more analgesic in 1 hour if needed.
--- NOTE | 2022-01-28 04:05 | NUR ---
Awake, states has H/A 08/08. [place] taken at this time. Up to BR with 1:1 assist from PRESSURE DISPATCHER. Voids and assisted back to bed. Offered and refused ice pack for head. Neuro's intact.
--- NOTE | 2022-01-28 04:53 | NUR ---
Rests with eyes closed. Respirations even and non-labored.
[2022-01-28 05:32] VITALS: BP 144/80
--- NOTE | 2022-01-28 06:15 | NUR ---
Awakens easily with verbal stimuli. Remains A/O x4. States [place] helped headache "some". Rates at a 5/10 at present time. Neurochecks remain intact with limited ROM to R shoulder secondary to pain and LFA secondary to Fx. CMS intact to LUE, splint in place.
--- NOTE | 2022-01-28 07:00 | NUR ---
RESUMED CARE FROM JAME GIRALDO
--- NOTE | 2022-01-28 07:15 | NUR ---
Report to Angela ARSHAD.
--- NOTE | 2022-01-28 08:00 | NUR ---
ON ASSESSMENT THIS AM, PATIENT NOTED TO BE PALE. REPORTS DIZZINESS AND "PRESSURE" TO HER FOREHEAD THAT IS CONSTANT BUT WORSE WHEN IN SITTING POSITION FROM SUPINE REPORTS 3/10 PAIN TO RIGHT SHOULDER AND LLE. UNSTEADY GAIT NOTED WITH X2 STAFF ASSIST WITH GAIT BELT. NEURO CHECK WNL. WEAK GRASP TO LEFT HAND DUE TO FOREARM FRACTURE. SPOKE WITH RADIOLOGY, REPEAT CT TO BE PERFORMED AT THIS TIME.
--- NOTE | 2022-01-28 08:30 | NUR ---
THIS NURSE AND PCT ASSISTED PT VIA WHEELCHAIR FOR CT OF HEAD. UNSTEADY GAIT NOTED FROM WHEELCHAIR TO CT. THIS NURSE ASSISTED PT TO BATHROOM, 200ML VOIDED. PT REPORTS FEELING LESS DIZZY AND REQUESTS SITTING IN RECLINER FOR BREAKFAST. ASSIST OF 1 WITH GAIT BELT FROM BATHROOM TO RECLINER. SLOW STEADY GAIT NOTED AT THIS TIME.
[2022-01-28 09:34] VITALS: BP 145/77
--- NOTE | 2022-01-28 10:00 | NUR ---
DR. GORDON IN TO SEE PATIENT AT THIS TIME.
--- NOTE | 2022-01-28 10:10 | NUR ---
PT REQUESTS TO SPEAK WITH DR. GORDON. NOTIFIED.
--- NOTE | 2022-01-28 10:15 | NUR ---
THIS NURSE CALLED SISTER AKILAH FOR UPDATE. PREPARING FOR DISCHARGE TODAY WITH HOME HEALTH. REQUESTS TO SPEAK TO CASE MANAGEMENT, MICHAEL BLANC.
--- NOTE | 2022-01-28 10:34 | NUR ---
DR. GORDON IN WITH PT AT THIS TIME.
--- NOTE | 2022-01-28 14:00 | NUR ---
PATIENT CONTINUES TO REPORT PRESSURE TO FOREHEAD AND DIZZINESS WITH POSITION CHANGES. THIS NURSE EDUCATED PATIENT TO MAKE POSITION CHANGES SLOWLY AND HEADACHE/PRESSURE WILL GRADUALLY IMPROVE EACH DAY. PATIENT NOTED TO NEED CONSTANT REMINDERS OF HEALTH STATUS, MEDICATIONS, AND TEST RESULTS SHE IS FORGETFUL. PATIENT VERBALIZES UNDERSTANDING.
--- NOTE | 2022-01-28 14:04 | NUR ---
THIS NURSE CLARIFIED WITH PATIENT THAT SHE REQUESTS [facility] FOR THERAPY AFTER DISCHARGE AND NOT [facility] PLACEMENT. DR. GORDON NOTIFIED OF PATIENTS WISHES. MICHAEL CASE MANAGEMENT TO BE NOTIFIED PER DR GORDON. PATIENTS SISTER AKILAH NOTIFIED.
--- NOTE | 2022-01-28 14:46 | NUR ---
Spoke with Sophia regarding going to [facility] for a few days. She is in agreement with this decision. She states that she does not want to go there to live at this time. Spoke with her sister Niecy. She will be by today to speak with Sophia and potentially have a DPOA signed. Wednesday will be her third midnight.
[2022-01-28 14:54] VITALS: BP 130/63
--- NOTE | 2022-01-28 15:02 | NUR ---
Referral faxed to for senior living. Will be ready on Wednesday. No CARE assessment needed at this time.
[2022-01-28 18:16] VITALS: BP 143/85
--- NOTE | 2022-01-28 18:47 | NUR ---
REPORT TO JAME GIRALDO
--- NOTE | 2022-01-28 20:46 | NUR ---
Report received at shift change from Angela ARSHAD. Patient resting supine in bed watching TV. A/O x4 but very poor short term memory. States pain is "not to bad" rates 2/10 to LFA. Denies H/A or dizziness at this time INK GRINDER reports able to ambulate 2 and from BR with 1:1 assist and walker. Splint CDI to LFA. CMS intact with some swelling noted to fingers. LUE elevated on a pillow. Continues to have pain and limited ROM to R shoulder. Neuro's intact. Assessment completed. Bed alarm on. Call light in reach.
[2022-01-28 21:39] VITALS: BP 138/78
--- NOTE | 2022-01-28 22:30 | NUR ---
Manojien given PO at this time per request. Patient inquired about her Warfarin and updated on plan to restart on Wednesday. Verbalizes understanding.
[2022-01-29] VITALS (8 sets, daily range): BP systolic 122–178; BP diastolic 65–101
--- NOTE | 2022-01-29 02:18 | NUR ---
Sleeping soundly. Sleeps through vital signs. VSS. No signs of pain or distress. Bed alarm on, call light in reach.
--- NOTE | 2022-01-29 04:30 | NUR ---
Awake, up to BR with 1:1 assist from CONTROLLED AREA CHECKER. Gait a little unsteady and hesitent as was yesterday in the early AM but able to walk on own. AM Protonix and anaglesic given at this time. States does have some pain in L wrist. ROM slightly improved to R shoulder.
--- NOTE | 2022-01-29 07:01 | NUR ---
Report to Fawn ARSHAD
--- NOTE | 2022-01-29 11:25 | NUR ---
PT ANA REPORTS BLOOD PRESSURE READING OF 156/101. THIS NURSE REASSESSED PATIENT WITH A MANUAL BLOOD PRESSURE READING OF 148/88. NORCO PROVIDED FOR PAIN/HEADACHE, RATING 3/10. THIS NURSE ASSESSED LABORER SHIPYARD CHRISTOPHER ASSIST PT TO AMBULATE WITH CANE FROM RECLINER TO BATHROOM. SLIGHT DIZZINESS REPORTED UPON POSITION CHANGE SITTING TO STANDING AND 2 INCIDENTS OF SHAKINESS OTHERWISE STEADY GAIT NOTED. LABORER SHIPYARD TO ASSIST PATIENT WITH A SHOWER, PT REPORTS FEELING "SWEATY AND STICKY".
--- NOTE | 2022-01-29 11:46 | NUR ---
Pts sister Niecy call returned for status update. Niecy notified of plan to stay another night and trying to get into [facility] for follow up rehab. JEANCARLOS Miller assisted pt to the restroom at this time.
--- NOTE | 2022-01-29 14:25 | NUR ---
ELISA DARNELL REPORTS PATIENT IS HAVING INCREASED PAIN TO RIGHT SHOULDER WITH RANGE OF MOTION EXERCISES STATING "PAIN TO TOUCH". THIS NURSE ASSESSED PATIENT, PATIENT REPORTS 3/10 PAIN TO RIGHT SHOULDER WORSENING WITH MOVEMENT. THIS NURSE REPORTED FINDINGS TO DR. GORDON, REQUESTING BACLOFEN. NEW ORDER RECEIVED AND ADMINISTERED.
--- NOTE | 2022-01-29 14:35 | NUR ---
PT SPEAKING TO POOJA ARSHAD AT BEDSIDE AT THIS TIME. CALL LIGHT WITHIN REACH.
--- NOTE | 2022-01-29 15:00 | NUR ---
Spoke with Yareli at [facility]. Advised if they accept we would like to send Sophia to them on Wednesday. Sophia is okay to go to [facility] for skilled care.
--- NOTE | 2022-01-29 17:35 | NUR ---
Pt complains of itching and pain to anterior elbow of L arm. Dr. Hernández notified. Splinting materials removed per provider verbal order. Ice placed to help with ithcing. Raised reddened area noted. Skin intact. Pt educated on refraining from itching L arm. Dr. Hernández to see patient shortly.
--- NOTE | 2022-01-29 18:45 | NUR ---
Dr. Hernández comes to bedside to look at pts arm. raised area improved. Dr. Hernández reports to apply steroid cream to the area BID and will place order. Arm rewrapped. 1854 report to Kelly ARSHAD.
[2022-01-29 20:11] LABS: URINE APPEARANCE HAZY; URINE COLOR YELLOW
[2022-01-29 20:12] LABS: URINE BILIRUBIN NEGATIVE (NEGATIVE); URINE BLOOD TRACE (NEGATIVE); URINE GLUCOSE NEGATIVE (NEGATIVE); URINE KETONE NEGATIVE (NEGATIVE); URINE LEUKOCYTE ESTERASE 1+ (NEGATIVE); URINE NITRATE NEGATIVE (NEGATIVE); URINE PROTEIN(semi-quant) TRACE (NEGATIVE); URINE UROBILINOGEN NORMAL (NORMAL)
--- NOTE | 2022-01-29 20:20 | NUR ---
PT CALLING TO GET UP AND USE THE BATHROOM. PT IS STANDBY ASSIST WITH CANE. PT IS ORENTATED BUT IS HAVING DIFFICULTY WITH SHORT TERM MEMORY. REPEATS THE SAME QUESTION ABOUT PILLS AND NURSING STAFF REPEATS THE SAME ANSWER. DOES C/O NAUSEA. ORDER FOR ZOFRAN OBTAINED.
--- NOTE | 2022-01-30 02:04 | NUR ---
Pt appears asleep. Resp 17 reg, nonlabored.
--- NOTE | 2022-01-30 04:46 | NUR ---
pt C/O headache 10/08. alert/orientated, forgetful. follows commands. moves all extremeties.
--- NOTE | 2022-01-30 07:00 | NUR ---
RESUMED CARE FROM JEANCARLOS DIAZ.
[2022-01-30 07:01] VITALS: BP 134/79
--- NOTE | 2022-01-30 07:19 | NUR ---
REPORT GIVEN TO ESTEVAN ARSHAD
[2022-01-30] MEDS ORDERED: MACROBID 1100 MG/CAP PO (08:20)
[2022-01-30] MEDS ORDERED: BETAMETHASONE D0.05% TP (08:21)
[2022-01-30] MEDS ORDERED: VOLTAREN ARTHRI20 GM TP (08:22)
--- NOTE | 2022-01-30 09:05 | NUR ---
NURSE TO NURSE CALLED TO JEANCARLOS CORTEZ AT [facility].
[2022-01-30 09:41] VITALS: BP 128/65
--- NOTE | 2022-01-30 10:39 | NUR ---
PATIENT A&OX4, FORGETFUL. SCABBING TO BRIDGE OF NOSE FROM PRIOR FALL. DENIES SOA, N/V/D. REPORTS 3/10 PAIN TO RIGHT SHOULDER AND ULE. REPORTS SLIGHT HEADACHE. DIZZINESS REPORTED WITH POSITION CHANGE. SPLINT TO LUE IN PLACE. REPORTS ITCHING TO LAC. DISCHARGE INSTRUCTIONS PROVIDED TO PATIENT AND SISTER AKILAH. VERBALIZES UNDERSTANDING. ALL QUESTIONS ANSWERED. PATIENT WAS ASSISTED VIA WHEELCHAIR WITH [facility] STAFF OUT OF BUILDING WITHOUT ISSUE. ALL PERSONAL BELONGINGS TAKEN WITH.
== END 2022-01-30 10:39 | DRG 83 ==
LOC: MED/SURG 17:39
PROVIDERS: Family Medicine; ADMIT Physician Assistant
DX: S06.6XAA Traumatic subarachnoid hemorrhage with loss of consciousness status unknown, initial encounter (principal); S52.532A Colles' fracture of left radius, initial encounter for closed fracture; S52.612A Displaced fracture of left ulna styloid process, initial encounter for closed fracture; W18.30XA Fall on same level, unspecified, initial encounter; Y92.009 Unspecified place in unspecified non-institutional (private) residence as the place of occurrence of the external cause; I48.91 Unspecified atrial fibrillation; F03.90 Unspecified dementia, unspecified severity, without behavioral disturbance, psychotic disturbance, mood disturbance, and anxiety; R53.81 Other malaise; Z79.01 Long term (current) use of anticoagulants; Z86.73 Personal history of transient ischemic attack (TIA), and cerebral infarction without residual deficits; Z88.0 Allergy status to penicillin; Z88.2 Allergy status to sulfonamides; Z88.1 Allergy status to other antibiotic agents

== ENCOUNTER → 2022-02-10 | Outpatient (CLI) | payer MEDICARE, BC ==
[~2022-02-10] MED LIST changes: +BETAMETHASONE D0.05% TP; +VOLTAREN ARTHRI20 GM TP
== END ==
LOC: RAD 10:17
DX: S52.502A Unspecified fracture of the lower end of left radius, initial encounter for closed fracture (principal); M79.89 Other specified soft tissue disorders; M25.511 Pain in right shoulder; X58.XXXA Exposure to other specified factors, initial encounter

== ENCOUNTER → 2022-12-31 | Outpatient (CLI) | payer MEDICARE, BC ==
[~2022-12-31] MED LIST changes: +BENADRYL PO; +CEFDINIR300 MG PO; +FUROSEMIDE40 MG; +HYDROXYZINE HCL25 M1 PO; +METHIMAZOLE10 M1 PO; +NEBIVOLOL HCL10 MG PO; +PERCOCET 325 MG1 TA2 PO; +ZYRTEC ALLERGY10 MG PO
[2022-12-31 07:35] LABS: HEMATOCRIT 40.7 % (37.0-47.0); HEMOGLOBIN 13.1 g/dL (12.5-16.0); MEAN PLATELET VOLUME 9.8 fl (7.4-10.4); RED BLOOD COUNT 4.3 M/mm3 (4.10-5.30); RED CELL DISTRIBUTION WIDTH 12.7 % (11.5-14.5)
[2022-12-31 07:52] LABS: ALBUMIN 3.2 g/dL (3.4-4.8)
[2022-12-31 07:54] LABS: TOTAL PROTEIN 6.6 g/dL (6.2-8.1)
[2022-12-31 07:56] LABS: TOTAL BILIRUBIN 0.6 mg/dL (0.2-1.2)
== END ==
LOC: LAB 07:23
PROVIDERS: Family Medicine
DX: E78.5 Hyperlipidemia, unspecified (principal); I11.0 Hypertensive heart disease with heart failure; I48.0 Paroxysmal atrial fibrillation; I65.29 Occlusion and stenosis of unspecified carotid artery; M79.7 Fibromyalgia; M81.0 Age-related osteoporosis without current pathological fracture; I25.10 Atherosclerotic heart disease of native coronary artery without angina pectoris; M19.90 Unspecified osteoarthritis, unspecified site; Z95.0 Presence of cardiac pacemaker

== ENCOUNTER → 2023-02-24 | Outpatient (REF) | payer MEDICARE, BC | LOC: LAB 05:08 | DX: E05.00 Thyrotoxicosis with diffuse goiter without thyrotoxic crisis or storm (principal); I10 Essential (primary) hypertension ==

== ENCOUNTER → 2023-07-02 | Outpatient (CLI) | payer MEDICARE, BC | LOC: RAD 15:46 | DX: R05.9 Cough, unspecified (principal) ==

== ENCOUNTER → 2023-07-06 | Outpatient (REF) | payer MEDICARE, BC ==
[2023-07-06 13:25] LABS: HEMOGLOBIN 14.3 g/dL (12.5-16.0); MEAN PLATELET VOLUME 9.4 fl (7.4-10.4); RED BLOOD COUNT 4.8 M/mm3 (4.10-5.30); RED CELL DISTRIBUTION WIDTH 12.6 % (11.5-14.5); WHITE BLOOD COUNT 6.3 K/mm3 (4.8-10.8)
[2023-07-06 13:30] LABS: ALBUMIN 3.4 g/dL (3.4-4.8)
[2023-07-06 13:31] LABS: SODIUM 138 mmol/L (136-145)
[2023-07-06 13:32] LABS: CALCIUM 9.3 mg/dL (8.3-10.5)
[2023-07-06 13:33] LABS: GLUCOSE 105 mg/dL (65-105); TOTAL PROTEIN 7.3 g/dL (6.2-8.1)
[2023-07-06 13:34] LABS: CARBON DIOXIDE 26 mmol/L (23-31)
[2023-07-06 13:35] LABS: TOTAL BILIRUBIN 0.6 mg/dL (0.2-1.2)
[2023-07-06 13:38] LABS: AST-SGOT 29 U/L (5-34)
[2023-07-06 13:40] LABS: ALT/SGPT 15 U/L (0-55)
[2023-07-06 13:46] LABS: TROPONIN-I < 0.030 ng/mL (0.00-0.033)
[2023-07-06 13:51] LABS: D-DIMER 0.94 mg/L FEU (0.15-0.50)
== END ==
LOC: LAB 13:11
PROVIDERS: Family Medicine
DX: J96.00 Acute respiratory failure, unspecified whether with hypoxia or hypercapnia (principal)

== ENCOUNTER → 2023-11-10 | Outpatient (CLI) | payer MEDICARE, BC ==
[2023-11-10 13:41] LABS: EOS # 0.11 K/mm3 (0.04-0.40); EOS % 1.2 % (1.0-5.0); HEMATOCRIT 40.9 % (37.0-47.0); LYMPH# 0.64 K/mm3 (1.50-4.00); MEAN CELL VOLUME 98 fl (78-100); MEAN CORPUSCULAR HEMOGLOBIN 31 pg (27-31); MEAN CORPUSCULAR HGB CONC 32 g/dL (33-37); MEAN PLATELET VOLUME 9.2 fl (7.4-10.4); MONO # 0.97 K/mm3 (0.20-0.80); NEU # 7.39 K/mm3 (1.40-6.50); PLATELET COUNT 105 K/mm3 (130-400); RED BLOOD COUNT 4.19 M/mm3 (4.10-5.30); RED CELL DISTRIBUTION WIDTH 12.8 % (11.5-14.5); WHITE BLOOD COUNT 9.1 K/mm3 (4.8-10.8)
[2023-11-10 14:01] LABS: ALBUMIN 3.6 g/dL (3.4-4.8)
[2023-11-10 14:02] LABS: CALCIUM 9.2 mg/dL (8.3-10.5)
[2023-11-10 14:13] LABS: TOTAL BILIRUBIN 1.1 mg/dL (0.2-1.2); TOTAL PROTEIN 7.5 g/dL (6.2-8.1)
== END ==
LOC: LAB 12:55
PROVIDERS: Family Medicine
DX: R05.3 Chronic cough (principal); Z20.822 Contact with and (suspected) exposure to COVID-19

== ENCOUNTER → 2023-11-16 | Outpatient (REF) | payer MEDICARE, BC ==
[2023-11-16 12:45] LABS: BASO # 0.02 K/mm3 (0.02-0.10); EOS # 0.26 K/mm3 (0.04-0.40); EOS % 3.7 % (1.0-5.0); HEMOGLOBIN 12.6 g/dL (12.5-16.0); LYMPH# 1.58 K/mm3 (1.50-4.00); MEAN CELL VOLUME 99 fl (78-100); MEAN CORPUSCULAR HEMOGLOBIN 31 pg (27-31); MEAN CORPUSCULAR HGB CONC 32 g/dL (33-37); MEAN PLATELET VOLUME 9.3 fl (7.4-10.4); MONO # 0.55 K/mm3 (0.20-0.80); NEU # 4.64 K/mm3 (1.40-6.50); PLATELET COUNT 136 K/mm3 (130-400); RED BLOOD COUNT 4.05 M/mm3 (4.10-5.30); WHITE BLOOD COUNT 7.1 K/mm3 (4.8-10.8)
[2023-11-16 12:49] LABS: ALBUMIN 3.3 g/dL (3.4-4.8)
[2023-11-16 12:50] LABS: CALCIUM 9.1 mg/dL (8.3-10.5)
[2023-11-16 12:52] LABS: TOTAL PROTEIN 6.8 g/dL (6.2-8.1)
[2023-11-16 12:53] LABS: TOTAL BILIRUBIN 0.6 mg/dL (0.2-1.2)
== END ==
LOC: LAB 12:19
PROVIDERS: Family Medicine
DX: I11.0 Hypertensive heart disease with heart failure (principal); I50.20 Unspecified systolic (congestive) heart failure; R60.9 Edema, unspecified

== ENCOUNTER → 2023-12-31 | Outpatient (REF) | payer MEDICARE, BC ==
[2023-12-31 09:39] LABS: BASO # 0.02 K/mm3 (0.02-0.10); EOS # 0.27 K/mm3 (0.04-0.40); EOS % 4.2 % (1.0-5.0); HEMOGLOBIN 13.4 g/dL (12.5-16.0); LYMPH# 1.79 K/mm3 (1.50-4.00); MEAN CELL VOLUME 101 fl (78-100); MEAN CORPUSCULAR HEMOGLOBIN 32 pg (27-31); MEAN CORPUSCULAR HGB CONC 31 g/dL (33-37); MEAN PLATELET VOLUME 9.6 fl (7.4-10.4); MONO # 0.62 K/mm3 (0.20-0.80); NEU # 3.65 K/mm3 (1.40-6.50); PLATELET COUNT 122 K/mm3 (130-400); RED BLOOD COUNT 4.25 M/mm3 (4.10-5.30); RED CELL DISTRIBUTION WIDTH 13.3 % (11.5-14.5); WHITE BLOOD COUNT 6.4 K/mm3 (4.8-10.8)
[2023-12-31 10:24] LABS: ALBUMIN 3.5 g/dL (3.4-4.8)
[2023-12-31 10:25] LABS: CALCIUM 9.1 mg/dL (8.3-10.5)
[2023-12-31 10:27] LABS: TOTAL PROTEIN 7.1 g/dL (6.2-8.1)
[2023-12-31 10:28] LABS: TOTAL BILIRUBIN 0.5 mg/dL (0.2-1.2)
== END ==
LOC: LAB 08:43
PROVIDERS: Family Medicine
DX: I10 Essential (primary) hypertension (principal); E78.5 Hyperlipidemia, unspecified; E05.90 Thyrotoxicosis, unspecified without thyrotoxic crisis or storm; Z86.718 Personal history of other venous thrombosis and embolism

== ENCOUNTER → 2024-02-24 | Outpatient (REF) | payer MEDICARE, BC | LOC: LAB 07:14 | DX: I10 Essential (primary) hypertension (principal); E04.2 Nontoxic multinodular goiter; E05.00 Thyrotoxicosis with diffuse goiter without thyrotoxic crisis or storm ==

== ENCOUNTER → 2024-03-20 | Outpatient (REF) | payer MEDICARE, BC | LOC: LAB 08:05 | DX: Z01.89 Encounter for other specified special examinations (principal) ==